=== PATIENT | male | born 1940 | race Hispanic/Latino ===

== ENCOUNTER 2018-09-24 11:25 | Day surgery (SDC) | payer OTHER ==
[~2018-09-24 11:25] MED LIST: IOPIDINE ONE; MYDRIACYL ONE; MYDRIACYL OS ONE; NEOFRIN ONE; NEOFRIN OS ONE
[2018-09-24] MEDS ORDERED: NEOFRIN OS ONE (11:40)
[2018-09-24] MEDS ORDERED: MYDRIACYL OS ONE ×2 (11:40)
[2018-09-24 12:32] VITALS: BP 94/59
== END 2018-09-24 11:26 | disposition home or self-care (01) ==
LOC: OR 11:25
PROVIDERS: ATTEND Specialist
DX: H26.491 Other secondary cataract, right eye (principal); I10 Essential (primary) hypertension; M17.0 Bilateral primary osteoarthritis of knee; Z98.890 Other specified postprocedural states; Z87.891 Personal history of nicotine dependence; Z79.84 Long term (current) use of oral hypoglycemic drugs; Z79.4 Long term (current) use of insulin; Z79.899 Other long term (current) drug therapy; Z98.41 Cataract extraction status, right eye; Z98.42 Cataract extraction status, left eye
CPT/HCPCS: 82962

== ENCOUNTER 2018-12-09 16:15 | Inpatient (IN) | payer MEDICARE, OTHER ==
[2018-12-09] MEDS ORDERED: NACL 0.9% 1000 ML 1,000 ML IV ONE (17:11)
[2018-12-09 17:41] LABS: Basophils # (Auto) 0.1 K/mm3 (0.0-0.1); Basophils % (Auto) 0.7 % (0.0-1.8); Hematocrit 44.3 % (35.5-45.6); Hemoglobin 14.5 gm/dl (11.8-15.2); Lymphocytes # (Auto) 1.8 K/mm3 (1.2-5.4); Lymphocytes % (Auto) 14.3 % (13.4-35.0); Mean Corpuscular HGB Conc 33 % (32-34); Mean Corpuscular Volume 92 fl (84-94); Monocytes # (Auto) 0.7 K/mm3 (0.0-0.8); Monocytes % (Auto) 5.8 % (0.0-7.3); Platelet Count 333 K/mm3 (140-440); Red Cell Distribution Width 13.6 % (13.2-15.2)
[2018-12-09 18:01] LABS: Alanine Aminotransferase 30 units/L (7-56); Albumin 3.3 g/dL (3.9-5); BUN/Creatinine Ratio 24; Blood Urea Nitrogen 26 mg/dL (9-20); Calcium 9.7 mg/dL (8.4-10.2); Hemolysis Index 11
--- NOTE | 2018-12-09 18:30 | Emergency Department Report ---
ED General Adult HPI - General Chief complaint: Weakness Stated complaint: DEHYDRATION/AMS Time Seen by Provider: 12/09/18 18:18 Source: patient, family Mode of arrival: Ambulatory Limitations: Altered Mental Status - History of Present Illness Initial comments: Patient is 78 years old male with history of Parkinson, diabetes and hypertension. Patient brought to the ER accompanied by his sons for evaluation of generalized weakness and diarrhea. Son stated that patient was doing well until 2 months ago when his best friend and since then his house deteriorated significantly. Patient is having difficulty walking, decreased memory, sleeping all time. Family stated that he did not have any fever, nausea or vomiting recently but he is the oral intake is significantly decreased. Patient denied any headache, chest pain or shortness of breath. - Related Data Home Medications Medication Instructions Recorded Confirmed Last Taken Atenolol 50 mg PO DAILY 09/23/18 12/09/18 Unknown Carbidopa/Levodopa [Carbidopa-Levo 1 each PO QID 09/23/18 12/09/18 Unknown 25-100 mg Odt] Insulin NPH Hum/Reg Insulin Hm 20 units SQ DAILY 09/23/18 12/09/18 Unknown [Novolin 70-30 100 Unit/ml Vial] Lisinopril [Zestril TAB] 40 mg PO DAILY 09/23/18 12/09/18 Unknown metFORMIN [Glucophage] 1,000 mg PO BID 09/23/18 12/09/18 Unknown Colesevelam [Welchol] 625 mg PO DAILY 12/09/18 12/09/18 Unknown Allergies Allergy/AdvReac Type Severity Reaction Status Date / Time No Known Allergies Allergy Verified 10/01/18 11:45 ED Review of Systems ROS: Stated complaint: DEHYDRATION/AMS Other details as noted in HPI Comment: All other systems reviewed and negative Constitutional: denies: chills, fever Respiratory: denies: cough, orthopnea, shortness of breath, SOB with exertion, SOB at rest, wheezing Cardiovascular: denies: chest pain, palpitations Gastrointestinal: abdominal pain, diarrhea. denies: nausea, vomiting, constipation, hematemesis, melena, hematochezia Genitourinary: urgency, dysuria, frequency Musculoskeletal: denies: back pain Neurological: weakness (generalized). denies: headache Psychiatric: depression. denies: auditory hallucinations, visual hallucinations, homicidal thoughts, suicidal thoughts ED Past Medical Hx - Past Medical History Hx Hypertension: Yes Hx Diabetes: Yes Hx Arthritis: Yes (Knees) Additional medical history: Parkinsons - Surgical History Past Surgical History?: No - Social History Smoking Status: Former Smoker Substance Use Type: None - Medications Home Medications: Home Medications Medication Instructions Recorded Confirmed Last Taken Type Atenolol 50 mg PO DAILY 09/23/18 12/09/18 Unknown History Carbidopa/Levodopa [Carbidopa-Levo 1 each PO QID 09/23/18 12/09/18 Unknown History 25-100 mg Odt] Insulin NPH Hum/Reg Insulin Hm 20 units SQ DAILY 09/23/18 12/09/18 Unknown History [Novolin 70-30 100 Unit/ml Vial] Lisinopril [Zestril TAB] 40 mg PO DAILY 09/23/18 12/09/18 Unknown History metFORMIN [Glucophage] 1,000 mg PO BID 09/23/18 12/09/18 Unknown History Colesevelam [Welchol] 625 mg PO DAILY 12/09/18 12/09/18 Unknown History ED Physical Exam - General Limitations: Altered Mental Status General appearance: alert, in no apparent distress - Head Head exam: Present: atraumatic, normocephalic, normal inspection - ENT ENT exam: Present: mucous membranes dry - Neck Neck exam: Present: normal inspection, full ROM. Absent: tenderness, meningismus, lymphadenopathy, thyromegaly - Respiratory Respiratory exam: Present: normal lung sounds bilaterally. Absent: respiratory distress, wheezes, rales, rhonchi, chest wall tenderness, accessory muscle use, decreased breath sounds, prolonged expiratory - Cardiovascular Cardiovascular Exam: Present: regular rate, bradycardia, normal heart sounds - GI/Abdominal GI/Abdominal exam: Present: soft, normal bowel sounds. Absent: distended, tenderness, guarding, rebound, rigid, organomegaly, mass, bruit, pulsatile mass, hernia - Extremities Exam Extremities exam: Present: normal inspection, full ROM, normal capillary refill. Absent: tenderness, pedal edema, calf tenderness - Back Exam Back exam: Present: normal inspection, full ROM. Absent: CVA tenderness (R), CVA tenderness (L), muscle spasm, paraspinal tenderness, vertebral tenderness, rash noted - Neurological Exam Neurological exam: Present: alert, oriented X3, CN II-XII intact, other (NIHSS is 0) - Psychiatric Psychiatric exam: Present: flat affect. Absent: agitated, anxious, manic, homicidal ideation, suicidal ideation - Skin Skin exam: Present: warm, dry, intact ED Course Vital Signs 12/09/18 12/09/18 12/09/18 16:24 19:26 21:00 Temperature 97.8 F 98.2 F Pulse Rate 48 L 112 H Respiratory 16 20 27 H Rate Blood Pressure 101/60 107/55 Blood Pressure 120/62 [Right] O2 Sat by Pulse 94 95 93 Oximetry ED Medical Decision Making - Lab Data Result diagrams: 12/09/18 17:18 12/09/18 17:18 - EKG Data -: EKG Interpreted by Ia EKG shows normal: sinus rhythm Rate: normal - EKG Data Interpretation: no acute changes - Radiology Data Radiology results: report reviewed Referring Physician: LOVE JORDAN Patient Name: СВЕТЛАНА POLLACK Date of : 1940 Sex: Male Report Date: 2018-12-09 Report Status: [place] [address] Cat Scan Report Signed Patient: СВЕТЛАНА POLLACK MR#: [id number] : 1940 Acct:[id number] Age/Sex: 78 / M ADM Date: 12/09/18 Loc: ED Attending Dr: Ordering Physician: LOVE JORDAN Date of Service: 12/09/18 Procedure(s): CT head/brain wo con Accession Number(s): [id number] cc: LOVE JORDAN FINAL REPORT PROCEDURE: CT head without contrast. TECHNIQUE: Computerized tomography of the head was performed without contrast material. HISTORY: Weakness. COMPARISON: No prior studies are available for comparison. FINDINGS: There is mild cerebral atrophy. There is mild evidence of chronic ischemic white matter disease. There is encephalomalacia involving the medial portion of the right occipital lobe. There is also some focal encephalomalacia involving the posterior left temporal lobe. These areas are consistent with old infarcts. There is some more subtle diminished attenuation involving a small area of the left parietal occipital region. This is not sharply defined. It involves both khan matter and subcortical white matter. It could represent a subacute stroke. Clinical cor relation is recommended. An MRI scan with diffusion-weighted imaging is the best means of further ev aluation. There are no mass lesions. There is no intracranial hemorrhage. The calvarium appears intact. The mastoid air cells are clear as far as visualized. There is extensive fluid in the left max illary sinus. IMPRESSION: Chronic ischemic changes as described. Question subacute ischemic injury in the left parieto- occipital lobe. Left maxillary sinusitis. Transcribed By: MRM Dictated By: CARLOS BENÍTEZ MD Electronically Authenticated By: CARLOS BENÍTEZ MD Signed Date/Time: 12/09/182001 Referring Physician: LOVE JORDAN Patient Name: СВЕТЛАНА POLLACK Date of : 1940 Sex: Male Report Date: 2018-12-09 Report Status: Finalized Findings [facility] [address] [place] [address] Cat Scan Report Signed Patient: СВЕТЛАНА POLLACK MR#: [id number] : 1940 Acct:[id number] Age/Sex: 78 / M ADM Date: 12/09/18 Loc: ED Attending Dr: Ordering Physician: LOVE JORDAN Date of Service: 12/09/18 Procedure(s): CT abdomen pelvis w con Accession Number(s): [id number] cc: LOVE JORDAN FINAL REPORT PROCEDURE: CT abdomen and pelvis with contrast. TECHNIQUE: Computerized axial tomography of the abdomen and pelvis was performed after the IV injection of iodinated nonionic contrast. HISTORY: Abdominal pain, diarrhea. COMPARISON: No prior studies are available for comparison. FINDINGS: There are numerous nodular masses in both lung bases. The largest visualized measures 4.8 centimeters in maximum dimension. The findings are consistent with metastatic disease. There are no pleural effusions. The heart size is normal. There are numerous areas of low attenuation throughout the liver. These are also consistent with widespread metastases. The gallbladder is present. There is no biliary dilatation. The pancreas and spleen appear normal. The adrenal glands are not enlarged. There are bilateral renal cysts. The abdominal aorta has a normal caliber. There is dense atherosclerotic calcification in the abdominal aorta and iliac arteries. There is no retroperitoneal adenopathy. The unopacified gastrointestinal tract is unremarkable. A normal appendix is visible. The bladder, seminal vesicles and prostate appear normal. The regional skeleton appears intact. There is degenerative disc disease at L2-3, L3-4 and L4-5. There is grade 1 spondylolisthesis at L4- 5. IMPRESSION: Extensive metastatic disease in the lungs and liver. Atherosclerosis. Bilateral renal cysts. Transcribed By: MRM Dictated By: CARLOS BENÍTEZ MD Electronically Authenticated By: CARLOS BENÍTEZ MD Signed Date/Time: 12/09/182041 DD/ 43 TD/TT: 12/09/182043 DD/ 04 TD/TT: 12/09/182004 - Medical Decision Making Patient is 78 years old male with history of Parkinson, diabetes and hypertension. Patient brought to the ER accompanied by his sons for evaluation of generalized weakness and diarrhea. Son stated that patient was doing well until 2 months ago when his best friend and since then his health deteriorated significantly. Patient is having difficulty walking, decreased memory, sleeping all time. Family stated that he did not have any fever, nausea or vomiting recently but his the oral intake is significantly decreased. Patient denied any headache, chest pain or shortness of breath. Patient EKG is unremarkable. CT brain showed a left parietal subacute ischemia. Patient chest x-ray and CT abdomen and pelvis showed extensive metastases dis ease in the lungs and liver. Patient receive IV fluids and Zosyn. I discussed the patient with Dr. Ros sanchez, she agreed to admit the patient to medical service for further evaluation. Critical Care Time: Yes Critical care time in (mins) excluding proc time.: 30 Critical care attestation.: If time is entered above; I have spent that time in minutes in the direct care of this critically ill patient, excluding procedure time. ED Disposition Clinical Impression: Weakness, Stroke, Metastases to the liver, Lung metastases Disposition: OP ADMIT IP TO THIS HOSP Is pt being admited?: Yes Condition: Stable Referrals: PRIMARY CARE, [Primary Care Provider] - 3-5 Days
[2018-12-09] MEDS ORDERED: ZOSYN/NS 3.375GM/50ML 3.375 GM/50 ML BAG IV ONE (19:00)
--- NOTE | 2018-12-09 20:02 | Cat Scan Report ---
FINAL REPORT PROCEDURE: CT head without contrast. TECHNIQUE: Computerized tomography of the head was performed without contrast material. HISTORY: Weakness. COMPARISON: No prior studies are available for comparison. FINDINGS: There is mild cerebral atrophy. There is mild evidence of chronic ischemic white matter disease. Ther e is encephalomalacia involving the medial portion of the right occipital lobe. There is also some fo mar encephalomalacia involving the posterior left temporal lobe. These areas are consistent with old infarcts. There is some more subtle diminished attenuation involving a small area of the left parieta l occipital region. This is not sharply defined. It involves both khan matter and subcortical white m atter. It could represent a subacute stroke. Clinical correlation is recommended. An MRI scan with di ffusion-weighted imaging is the best means of further evaluation. There are no mass lesions. There is no intracranial hemorrhage. The calvarium appears intact. The mastoid air cells are clear as far as visualized. There is extensive fluid in the left maxillary sinus. IMPRESSION: Chronic ischemic changes as described. Question subacute ischemic injury in the left parieto-occipita l lobe. Left maxillary sinusitis.
--- NOTE | 2018-12-09 20:11 | XRay Report ---
FINAL REPORT EXAM: XR CHEST 1V AP HISTORY: weakness TECHNIQUE: Chest single AP PRIORS: None. FINDINGS: Numerous pulmonary nodules are scattered throughout both lungs measuring up to 5.8 centimeters in tra nsverse diameter consistent appearance with advanced metastatic disease. Cardiac silhouette appears within normal limits. No pleural effusions are identified. No acute skelet al findings noted. IMPRESSION: Numerous pulmonary nodules throughout the chest most consistent with advanced metastatic disease CTR 2 protocol initiated at the time of this dictation
--- NOTE | 2018-12-09 20:42 | Cat Scan Report ---
FINAL REPORT PROCEDURE: CT abdomen and pelvis with contrast. TECHNIQUE: Computerized axial tomography of the abdomen and pelvis was performed after the IV inject ion of iodinated nonionic contrast. HISTORY: Abdominal pain, diarrhea. COMPARISON: No prior studies are available for comparison. FINDINGS: There are numerous nodular masses in both lung bases. The largest visualized measures 4.8 centimeters in maximum dimension. The findings are consistent with metastatic disease. There are no pleural effu sions. The heart size is normal. There are numerous areas of low attenuation throughout the liver. Th dheeraj are also consistent with widespread metastases. The gallbladder is present. There is no biliary d ilatation. The pancreas and spleen appear normal. The adrenal glands are not enlarged. There are bila teral renal cysts. The abdominal aorta has a normal caliber. There is dense atherosclerotic calcifica tion in the abdominal aorta and iliac arteries. There is no retroperitoneal adenopathy. The unopacifi ed gastrointestinal tract is unremarkable. A normal appendix is visible. The bladder, seminal vesicle s and prostate appear normal. The regional skeleton appears intact. There is degenerative disc diseas e at L2-3, L3-4 and L4-5. There is grade 1 spondylolisthesis at L4-5. IMPRESSION: Extensive metastatic disease in the lungs and liver. Atherosclerosis. Bilateral renal cysts.
[2018-12-09] MEDS ORDERED: SODIUM CHLORIDE FLUSH SYRINGE 10 ML IV PRN (22:18)
[2018-12-09] MEDS ORDERED: ZOFRAN IV PRN ×2 (22:18→22:23)
[2018-12-09] MEDS ORDERED: PERCOCET 5/325 PO PRN (22:18)
[2018-12-09] MEDS ORDERED: TYLENOL PO PRN (22:23)
[2018-12-09] MEDS ORDERED: SODIUM CHLORIDE FLUSH SYRINGE 10 ML INJ PRN (22:23)
[2018-12-09] MEDS ORDERED: MILK OF MAGNESIA PO PRN (22:23)
[2018-12-09] MEDS ORDERED: DULCOLAX PR PRN (22:23)
[2018-12-09] MEDS ORDERED: REGLAN PO PRN (22:23)
--- NOTE | 2018-12-09 22:29 | History and Physical Report ---
History of Present Illness Date of examination: 12/09/18 History of present illness: 78 -year-old man a history of hypertension, diabetes, Parkinson's was brought to the emergency room by the son for evaluation of weight loss. He stated the patient is diarrhea for maybe 3 weeks, the patient has become forgetful and has difficulty ambulating, generalized weakness Review of systems Constitutional: no weight loss, chills, fever Ears, eyes, nose, mouth and throat: no nasal congestion, no nasal discharge, no sinus pressure, no vision change, no red eye. Neck: No neck pain or rigidity. Cardiovascular: no palpitations, chest pain Respiratory: no cough, shortness of breath Gastrointestinal: no hematochezia, abdominal pain Genitourinary : no frequency , no hematuria Musculoskeletal: no joint swelling or muscle ache Integumentary: no rash, no pruritis Neurological: no parathesias, no focal weakness Endocrine: no cold or heat intolerance, no polyuria or polydipsia Hematologic/Lymphatic: no easy bruising, no easy bleeding, no gland swelling Allergic/Immunologic: no urticaria, no angioedema. PAST MEDICAL HISTORY: hypertension, diabetes, Parkinson's PAST SURGICAL HISTORY: Cataract extraction SOCIAL HISTORY: Denies alcohol, drugs, tobacco FAMILY HISTORY: Hypertension Medications and Allergies Allergies Allergy/AdvReac Type Severity Reaction Status Date / Time No Known Allergies Allergy Verified 10/01/18 11:45 Home Medications Medication Instructions Recorded Confirmed Last Taken Type Atenolol 50 mg PO DAILY 09/23/18 12/09/18 Unknown History Carbidopa/Levodopa [Carbidopa-Levo 1 each PO QID 09/23/18 12/09/18 Unknown History 25-100 mg Odt] Insulin NPH Hum/Reg Insulin Hm 20 units SQ DAILY 09/23/18 12/09/18 Unknown Histo ry [Novolin 70-30 100 Unit/ml Vial] Lisinopril [Zestril TAB] 40 mg PO DAILY 09/23/18 12/09/18 Unknown History metFORMIN [Glucophage] 1,000 mg PO BID 09/23/18 12/09/18 Unknown History Colesevelam [Welchol] 625 mg PO DAILY 12/09/18 12/09/18 Unknown History Active Meds: Active Medications Acetaminophen (Tylenol) 650 mg PO Q4H PRN PRN Reason: Pain MILD(1-3)/Fever >100.5/ROBLEDO Acetaminophen (Tylenol) 650 mg PO Q4H PRN PRN Reason: Pain, Mild (1-3) Aspirin (Aspirin) 325 mg PO QDAY MARU Bisacodyl (Dulcolax) 10 mg OR QDAY PRN PRN Reason: Constipation Enoxaparin Sodium (Lovenox) 30 mg SUB-Q QDAY [facility] Sodium Chloride (Nacl 0.9% 1000 Ml) 1,000 mls @ 100 mls/hr IV DIRECT MARU Magnesium Hydroxide (Milk Of Magnesia) 30 ml PO Q4H PRN PRN Reason: Constipation Metoclopramide HCl (Reglan) 10 mg PO Q6H PRN PRN Reason: Nausea And Vomiting Ondansetron HCl (Zofran) 4 mg IV Q8H PRN PRN Reason: Nausea And Vomiting Ondansetron HCl (Zofran) 4 mg IV Q8H PRN PRN Reason: Nausea And Vomiting Oxycodone/Acetaminophen (Percocet 5/325) 1 tab PO Q6H PRN PRN Reason: Pain, Moderate (4-6) Pravastatin Sodium (Pravachol) 20 mg PO QHS MARU Sodium Chloride (Sodium Chloride Flush Syringe 10 Ml) 10 ml IV BID MARU Sodium Chloride (Sodium Chloride Flush Syringe 10 Ml) 10 ml IV PRN PRN PRN Reason: LINE FLUSH Sodium Chloride (Sodium Chloride Flush Syringe 10 Ml) 10 ml INJ PRN PRN PRN Reason: LINE FLUSH Exam - Physical Exam Narrative exam: General Apperance: The patient lying in bed, breathing comfortable HEENT: Normocephalic, atraumatic. Pupils equally round and reactive to light, EOMI, no sclericterus or JVD or thyromegaly or nodule. , no carotid bruit, mucous membranes moist, no exudate or erythema Heart: S1-S2, regular is rhythm Lungs: Clear to auscultation bilaterally, breathing comfortable Abdomen: Positive bowel sounds, soft, nontender, nondistended, no organomegaly Extremities: No edema cyanosis clubbing Skin: no rash, nodule, warm and dry Neuro: cranial nerves 2-12 intact, speech is fluent, motor/sensory intact - Constitutional Vitals: Temp Pulse Resp BP Pulse Ox 98.2 F 112 H 27 H 107/55 93 12/09/18 19:26 12/09/18 21:00 12/09/18 21:00 12/09/18 21:00 12/09/18 21:00 Results - Labs CBC & Chem 7: 12/09/18 17:18 12/09/18 17:18 Labs: Abnormal lab results 12/09/18 12/09/18 Range/Units 17:18 17:18 WBC 12.3 H (4.5-11.0) K/mm3 Seg Neutrophils % 79.2 H (40.0-70.0) % Seg Neutrophils # 9.7 H (1.8-7.7) K/mm3 Sodium 135 L (137-145) mmol/L Chloride 95.4 L (98-107) mmol/L Carbon Dioxide 17 L (22-30) mmol/L BUN 26 H (9-20) mg/dL Glucose 205 H (75-100) mg/dL Alkaline Phosphatase 210 H (35-129) units/L Albumin 3.3 L (3.9-5) g/dL - Imaging and Cardiology Chest x-ray: report reviewed CT scan - abdomen: report reviewed CT Scan - head: report reviewed CT scan - pelvis: report reviewed Assessment and Plan Assessment Metastatic cancer of unknown origin Subacute CVA Diarrhea, rule out C. difficile Dehydration Hypertension Diabetes Plan Admit to medicine Obtain MRI of the head, carotid Doppler, echo Do neuro checks, consult neurology, physical and occupational therapy Start aspirin, statin, IV fluid Start IV fluids, check stool for culture, C. difficile Consult oncology Check fingersticks , DVT prophylaxis
[2018-12-10 00:16] LABS: Bilirubin,Urine NEG (Negative); Blood,Urine NEG (Negative); Color,Urine Yellow (Yellow); Hyaline Casts,Urine 4 /LPF; Mucus,Urine FEW /HPF; Protein,Urine <15 mg/dL mg/dL (Negative); Urobilinogen,Urine < 2.0 mg/dL (<2.0)
[2018-12-10] MEDS: NACL 0.9% 1000 ML 1,000 ML IV SCH (01:14)
[2018-12-10 05:38] LABS: Basophils # (Auto) 0.1 K/mm3 (0.0-0.1); Basophils % (Auto) 0.7 % (0.0-1.8); Eosinophils % (Auto) 0.2 % (0.0-4.3); Hematocrit 41.5 % (35.5-45.6); Hemoglobin 13.9 gm/dl (11.8-15.2); Lymphocytes % (Auto) 17.6 % (13.4-35.0); Mean Corpuscular HGB Conc 34 % (32-34); Mean Corpuscular Volume 91 fl (84-94); Monocytes # (Auto) 0.8 K/mm3 (0.0-0.8); Monocytes % (Auto) 7.1 % (0.0-7.3); Platelet Count 301 K/mm3 (140-440); Red Blood Count 4.54 M/mm3 (3.65-5.03); Red Cell Distribution Width 13.5 % (13.2-15.2)
[2018-12-10 05:43] LABS: BUN/Creatinine Ratio 22; Blood Urea Nitrogen 24 mg/dL (9-20); Calcium 9.3 mg/dL (8.4-10.2); Chol/HDL Ratio 9.34 %; HDL Cholesterol 23 mg/dL (40-59); Hemolysis Index 1; LDL Cholesterol,Direct 171 mg/dL (50-130)
[2018-12-10] MEDS ORDERED: LOVENOX SUB-Q SCH (10:00)
[2018-12-10] MEDS ORDERED: AFLURIA QUAD 2018-2019 SYRINGE IM ONE (12:00)
[2018-12-10] MEDS ORDERED: PNEUMOVAX 23 IM ONE (12:00)
--- NOTE | 2018-12-10 13:43 | Magnetic Resonance Report ---
MRI OF THE BRAIN WITHOUT CONTRAST: HISTORY: Stroke PROCEDURE: Multiplanar, multisequence MR imaging of the brain without IV contrast was performed. FINDINGS: CT head dated 12/09/18 was reviewed. Diffusion images confirm a 4.2 x 2.7 cm area of diffusion restriction in the left parietal-occipital watershed region. This is consistent with a subacute infarct. No additional areas of diffusion restriction are identified. Diffuse cortical volume loss and nonspecific chronic white matter changes are identified. Chronic cortical infarct in the medial right occipital lobe measures 3.9 x 2.6 cm. Chronic cortical infarct in the posterior left temporal lobe measures 2.8 x 2.1 cm. A smaller chronic cortical infarct is identified in the left parietal lobe. No evidence for hemorrhage, mass, mass effect or extra-axial fluid collection. The midline structures are central. The basal cisterns are patent. Normal ventricular size. The orbital cavities and sella turcica demonstrate no abnormality. The left maxillary sinus is nearly opacified and demonstrates diffusion restriction consistent with acute sinusitis. The remaining sinuses are well-aerated. IMPRESSION: 4.2 x 2.7 cm subacute ischemic infarct in the left parieto-occipital region. 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 Volume loss. Chronic white matter changes. Acute on chronic left maxillary sinusitis.
--- NOTE | 2018-12-10 13:49 | Vascular Lab Report ---
FINAL REPORT EXAM: VL CAROTID DUPLEX BILAT HISTORY: stroke TECHNIQUE: Grayscale and color and spectral Doppler ultrasound imaging of the carotid arteries was p erformed. PRIORS: None. FINDINGS: No areas of complete occlusion. Normal waveforms are seen throughout. No aneurysm. Normal flow is see n in the external carotid arteries. Antegrade flow is seen in the vertebral arteries. Calcified ather osclerotic plaque is seen. Peak systolic velocities in cm/s below: Right: CCA: 77 proximally, 73 distally ICA: 53 proximally, 41 mid, 44 distally ECA: 108 Left: CCA: 86 proximally, 84 distally ICA: 86 proximally, 83 mid, 59 distally ECA: 118 The right ICA:CCA ratio is 0.69. The left ICA:CCA ratio is 1.01. IMPRESSION: Calcified atherosclerotic plaque with less than 50 percent stenosis of the internal carotid arteries.
--- NOTE | 2018-12-10 14:14 | Progress Note ---
Assessment and Plan - Patient Problems (1) Lung metastases Current Visit: Yes Status: Acute Qualifiers: Laterality: unspecified laterality Qualified Code(s): C78.00 - Secondary malignant neoplasm of unspecified lung Plan to address problem: Hem onc consult requested (2) Metastases to the liver Current Visit: Yes Status: Acute Plan to address problem: For possible biopsy by IR (3) Stroke Current Visit: Yes Status: Chronic Qualifiers: CVA mechanism: thrombosis Plan to address problem: Stroke in the past Supportive care (4) Diarrhea Current Visit: Yes Status: Chronic Qualifiers: Diarrhea type: unspecified type Qualified Code(s): R19.7 - Diarrhea, unspecified Plan to address problem: Possible malabsorption stool studies ordered C diff ordered GI consult (5) HTN (hypertension) Current Visit: Yes Status: Chronic Qualifiers: Hypertension type: essential hypertension Qualified Code(s): I10 - Essential (primary) hypertension Plan to address problem: Cont antihypertensives (6) T2DM (type 2 diabetes mellitus) Current Visit: Yes Status: Chronic Qualifiers: Diabetes mellitus fpc insulin use: without horseshoer use Plan to address problem: Cont coverage (7) Dehydration Current Visit: Yes Status: Acute Plan to address problem: IV Fluids for now (8) DVT prophylaxis Current Visit: Yes Status: Acute Plan to address problem: On Lovenox and GI prophylaxis Subjective Date of service: 12/10/18 Principal diagnosis: Lung mets and Liver mets ,Diarrhea Interval history: [id number] with diarrhea,feeling weak.same condition Objective - Constitutional Vitals: Vital Signs - 12hr 12/10/18 12/10/18 12/10/18 04:02 05:00 07:51 Temperature 97.3 F L 98.2 F Pulse Rate 90 93 H 95 H Respiratory 14 18 Rate Blood Pressure 105/63 103/54 O2 Sat by Pulse 94 94 Oximetry 12/10/18 12:11 Temperature Pulse Rate 109 H Respiratory Rate Blood Pressure 100/63 O2 Sat by Pulse 94 Oximetry General appearance: Present: no acute distress, well-nourished - EENT Eyes: PERRL, EOM intact ENT: hearing intact, clear oral mucosa Ears: bilateral: normal - Neck Neck: supple, normal ROM - Respiratory Respiratory effort: normal Respiratory: bilateral: CTA - Breasts Breasts: normal - Cardiovascular Heart rate: 78 Rhythm: regular Heart Sounds: Present: S1 & S2. Absent: gallop, rub Extremities: pulses intact, No edema, normal color, Full ROM - Gastrointestinal General gastrointestinal: Present: soft, non-tender, non-distended, normal bowel sounds - Genitourinary Male genitourinary: normal - Integumentary Integumentary: clear, warm, dry - Musculoskeletal Musculoskeletal: 1, strength equal bilaterally - Neurologic Neurologic: moves all extremities - Psychiatric Psychiatric: memory intact, appropriate mood/affect, intact judgment & insight - Labs CBC & Chem 7: 12/10/18 04:46 12/10/18 04:46 Labs: Abnormal lab results 12/09/18 12/09/18 12/10/18 Range/Units 17:18 17:18 00:05 WBC 12.3 H (4.5-11.0) K/mm3 Seg Neutrophils % 79.2 H (40.0-70.0) % Seg Neutrophils # 9.7 H (1.8-7.7) K/mm3 Sodium 135 L (137-145) mmol/L Chloride 95.4 L (98-107) mmol/L Carbon Dioxide 17 L (22-30) mmol/L BUN 26 H (9-20) mg/dL Glucose 205 H (75-100) mg/dL Alkaline Phosphatase 210 H (35-129) units/L Albumin 3.3 L (3.9-5) g/dL Cholesterol (50-199) mg/dL LDL Cholesterol Direct (50-130) mg/dL HDL Cholesterol (40-59) mg/dL Ur Specific Mather 1.060 H (1.003-1.030) 12/10/18 12/10/18 Range/Units 04:46 04:46 WBC 11.6 H (4.5-11.0) K/mm3 Seg Neutrophils % 74.4 H (40.0-70.0) % Seg Neutrophils # 8.6 H (1.8-7.7) K/mm3 Sodium (137-145) mmol/L Chloride (98-107) mmol/L Carbon Dioxide 21 L (22-30) mmol/L BUN 24 H (9-20) mg/dL Glucose 155 H (75-100) mg/dL Alkaline Phosphatase (35-129) units/L Albumin (3.9-5) g/dL Cholesterol 215 H (50-199) mg/dL LDL Cholesterol Direct 171 H (50-130) mg/dL HDL Cholesterol 23 L (40-59) mg/dL Ur Specific Mather (1.003-1.030) CT Abd/pelvis FINDINGS: There are numerous nodular masses in both lung bases. The largest visualized measures 4.8 centimeters in maximum dimension. The findings are consistent with metastatic disease. There are no pleural effusions. The heart size is normal. There are numerous areas of low attenuation throughout the liver. These are also consistent with widespread metastases. The gallbladder is present. There is no biliary dilatation. The pancreas and spleen appear normal. The adrenal glands are not enlarged. There are bilateral renal cysts. The abdominal aorta has a normal caliber. There is dense atherosclerotic calcification in the abdominal aorta and iliac arteries. There is no retroperitoneal adenopathy. The unopacified gastrointestinal tract is unremarkable. A normal appendix is visible. The bladder, seminal vesicles and prostate appear normal. The regional skeleton appears intact. There is degenerative disc disease at L2-3, L3-4 and L4-5. There is grade 1 spondylolisthesis at L4- 5. IMPRESSION: Extensive metastatic disease in the lungs and liver. Atherosclerosis. Bilateral renal cysts. - Imaging and cardiology Chest x-ray: report reviewed CT scan - chest: report reviewed CT Scan - head: report reviewed
--- NOTE | 2018-12-10 16:08 | Event Note ---
Date: 12/10/[id number]
[2018-12-10] MEDS: ASPIRIN PO SCH (16:31)
[2018-12-10] MEDS: LOVENOX SUB-Q SCH (16:32)
[2018-12-10] MEDS: SODIUM CHLORIDE FLUSH SYRINGE 10 ML IV SCH (16:32)
[2018-12-10] MEDS: HumaLOG SUB-Q SCH ×2 (19:13→23:59)
[2018-12-10] MEDS: PRAVACHOL PO SCH (21:08)
--- NOTE | 2018-12-11 00:19 | Consultation ---
REFERRING PHYSICIAN: Dean Leonardo MD REASON FOR CONSULTATION: Lung and liver lesions. HISTORY OF PRESENT ILLNESS: I saw the patient, a 78-year-old male with past history of hypertension, diabetes, Parkinson's. He came to the hospital because of weight loss and diarrhea for a few weeks. The patient also has a history of being forgetful and generalized weakness. The patient lives alone, but because of his medical issues, there is a question if he should be in the detention. He has lost about 20 pounds in a few months. No history of fever. The patient has memory issues. No chest pain. No shortness of breath at rest. No abdominal pain, no vomiting, has diarrhea. No hematemesis, no hematochezia. No seizure or syncope. PAST MEDICAL HISTORY: Hypertension, diabetes, Parkinson's. PAST SURGICAL HISTORY: Cataracts. SOCIAL HISTORY: No history of tobacco or alcohol use. FAMILY HISTORY: Hypertension. ALLERGIES: None. HOME MEDICATIONS: Atenolol, carbidopa-levodopa, insulin, lisinopril, metformin. PHYSICAL EXAMINATION: VITAL SIGNS: Temperature 98, pulse 95, respirations 18, BP 103/54. No pallor, no icterus. NECK: No neck lymph nodes. HEART: S1, S2. LUNGS: Clear to auscultation. Decreased air entry. ABDOMEN: Soft, no guarding. EXTREMITIES: No calf tenderness. NEUROLOGIC: Alert, awake, follows simple commands. LABORATORY DATA: White cell 11, hemoglobin 13, MCV 91, platelets 301, potassium 4.2, creatinine 1.1, calcium 9.3, bilirubin 0.8. RADIOLOGY: CT abdomen shows multiple lung and liver lesions, largest in the lung is 4.8 cm. In the liver, there are numerous areas of low attenuation throughout. MRI brain was done and it shows ischemic infarct. ASSESSMENT: 1. Multiple lung lesions, likely metastatic. 2. Multiple liver densities, possible metastatic. 3. History of renal cyst. 4. History of loss of weight. 5. I discussed with the patient and family members regarding biopsy to know the tissue. They are not sure regarding the further plan. They are not keen to have chemotherapy due to his performance status issues. The patient has memory issues. MRI of the head shows stroke. 6. History of diarrhea, GI evaluation. 7. Further issues include Parkinson's issue. 8. History of hypertension. 9. History of diabetes. PLAN: 1. We will do tumor markers. 2. This appears to be a metastatic neoplasm. Liver biopsy is an option. I will liaise with other physicians to guide the patient and family members regarding further investigations. Blood liquid biopsy is an option. I will review this with family members. JOB# [id number] NM/NTS
--- NOTE | 2018-12-11 01:31 | Consultation ---
NEUROLOGICAL CONSULTATION REASON FOR CONSULTATION: Parkinson disease, lethargy, weakness, weight loss. History of present illness and other information was obtained from the two brothers and the [id number], who was at the bedside. HISTORY OF PRESENT ILLNESS: The patient is a 78-year-old with a chronic illness, has been very, very sick and he was brought to the Emergency Room because of weight loss and was having diarrhea for the last 3 weeks. On top of this, he was also having decline in his mentation. His memory has been getting bad. He is not walking like before. He is just very weak and not eating much. Most of the time, he was just asleep. He was then brought in here to make him mainly comfortable. The patient is not having any pain, but just very weak. There was a history that his best friend recently and then he deteriorated significantly. PAST MEDICAL HISTORY: The patient was diagnosed with Parkinson disease, diabetes, hypertension. He has cancer also and was found to have metastases in the lungs, the liver, and the abdomen. The source of metastasis apparently is not known. Past medical history as mentioned hypertension, diabetes, arthritis, Parkinson, cancer. PAST SURGICAL HISTORY: None, but apparently the family was requesting a liver biopsy to see the extent of the disease, but not for treatment. SOCIAL HISTORY: The patient is a former smoker, but not a drug abuser. MEDICATIONS: The patient is taking atenolol, carbidopa/levodopa 25/100 q.i.d., insulin, lisinopril, metformin. PHYSICAL EXAMINATION: GENERAL: Reveals a patient who is chronically ill, very weak, but awake and communicating. VITAL SIGNS: Temperature 97.8, heart rate 50, respirations 16 and regular, blood pressure 101/60, saturation 94%. HEAD, EYES, EARS, NOSE, MOUTH, AND THROAT: Unremarkable. No intracranial or intraorbital bruit. NECK: Supple. No carotid bruit. HEART: Regular rhythm. LUNGS: Decreased breath sounds. ABDOMEN: Soft, nontender. EXTREMITIES: Dry. No edema. NEUROLOGIC: Reveals the patient is awake, alert, communicating, following verbal commands, however he is confused to time. He thought he was in [place], [place]. Memory is very poor. No fund of knowledge. Cranial nerve examination limited, but unremarkable. There is suggestion of right-sided facial weakness. Tongue ____. Motor examination: The patient is very weak, however he has no cogwheeling rigidity, no tremor. The patient is not ambulated because of his weakness. Reflexes hypoactive. Neutral toe response. CLINICAL IMPRESSION: I was asked to see this patient for the Parkinson disease. ASSESSMENT: 1. This patient indeed does have chronic Parkinson disease. His recovery is not expected. 2. The patient has evidence of subacute cerebrovascular accident. This was seen in the MRI. The patient also has encephalopathy which could be remote effects of maybe cancer or stroke. The patient has evidence of metastatic disease in the abdomen and in the lungs. PLAN: I had a long discussion with his family. They just wanted the patient to be comfortable. I discussed with them that the patient is just fine with the current dose of carbidopa/levodopa. The patient should take other medicines to make him feel comfortable. They are aware that the prognosis of their father is very poor. Sixty minutes involved in the history and physical examination and more than 50% in the evaluation and care and counseling. JOB# [id number] BAUTISTA/SHANTANU
--- NOTE | 2018-12-11 07:17 | Hem/Onc Progress Note ---
Assessment and Plan 1. Multiple lung lesions, likely metastatic. 2. Multiple liver densities, possible metastatic. 3. History of renal cyst. 4. History of loss of weight. 5. I discussed with the patient and family members regarding biopsy to know the tissue. They are not sure regarding the further plan. They are not keen to have chemotherapy due to his performance status issues. The patient has memory issues. MRI of the head shows stroke. 6. History of diarrhea, GI evaluation. 7. Further issues include Parkinson's issue. 8. History of hypertension. 9. History of diabetes. PLAN: 1. We will do tumor markers. 2. This appears to be a metastatic neoplasm. Liver biopsy is an option. I will liaise with other physicians to guide the patient and family members regarding further investigations. Blood liquid biopsy is an option. I will review this with family members. 12/11/2018 d/w misha - they prefer liver bx - but no chemo or no PORT tumor markers sent - PSA normal Subjective Date of service: 12/11/18 Principal diagnosis: lung and liver mets Interval history: says ok Objective - Constitutional Vitals: Last Vital Signs Temp 98.4 F 12/11/18 04:30 Pulse 97 H 12/11/18 04:30 Resp 17 12/11/18 04:30 BP 129/71 12/11/18 04:30 Pulse Ox 94 12/11/18 04:30 Pain Intensity (0-10): denies any pain General appearance: no acute distress Performance status: 3-limited selfcare - EENT Eyes: EOM intact ENT: clear oral mucosa Lymph node exam: negative cervical, negative supraclavicular - Neck Neck: supple - Respiratory Respiratory effort: Positive: normal Respiratory: negative: CTA, diminished - Cardiovascular Heart Sounds: Present: S1 & S2 Extremities: No edema - Gastrointestinal General gastrointestinal: Present: soft, hepatomegaly Rectal Exam: deferred - Genitourinary Male genitourinary: Present: deferred - Integumentary Integumentary: warm - Musculoskeletal Musculoskeletal: strength equal bilaterally - Neurologic Neurologic: moves all extremities - Labs Lab Results: Laboratory Results - last 24 hr 12/10/18 12/10/18 12/10/18 16:25 17:03 20:45 POC Glucose 247 H 227 H Prostate Specific Ag 1.51 12/10/18 12/11/18 23:58 06:00 POC Glucose 204 H 144 H Prostate Specific Ag Medications & Allergies - Medications Allergies/Adverse Reactions: Allergies No Known Allergies Allergy (Verified 10/01/18 11:45) Home Medications: Home Medications Medication Instructions Recorded Confirmed Last Taken Type Atenolol 50 mg PO DAILY 09/23/18 12/09/18 Unknown History Carbidopa/Levodopa [Carbidopa-Levo 1 each PO QID 09/23/18 12/09/18 Unknown History 25-100 mg Odt] Insulin NPH Hum/Reg Insulin Hm 20 units SQ DAILY 09/23/18 12/09/18 Unknown History [Novolin 70-30 100 Unit/ml Vial] Lisinopril [Zestril TAB] 40 mg PO DAILY 09/23/18 12/09/18 Unknown History metFORMIN [Glucophage] 1,000 mg PO BID 09/23/18 12/09/18 Unknown History Colesevelam [Welchol] 625 mg PO DAILY 12/09/18 12/09/18 Unknown History rOPINIRole [Requip] 1 mg PO BID 12/10/18 12/10/18 1 Day Ago History ~12/09/18 2mg Active Medications: Generic Name Dose Route Start Last Admin Trade Name Freq PRN Reason Stop Dose Admin Acetaminophen 650 mg 12/09/18 22:18 Tylenol PO Q4H PRN Pain MILD(1-3)/Fever >100.5/ROBLEDO Aspirin 325 mg 12/10/18 10:00 12/10/18 16:31 Aspirin PO 325 mg QDAY MARU Administration Bisacodyl 10 mg 12/09/18 22:23 Dulcolax DE QDAY PRN Constipation Enoxaparin Sodium 40 mg 12/10/18 10:00 12/10/18 16:32 Lovenox SUB-Q 40 mg QDAY@1000 MARU Administration Sodium Chloride 1,000 mls @ 100 mls/hr 12/09/18 23:00 12/10/18 01:14 Nacl 0.9% 1000 Ml IV 100 mls/hr DIRECT MARU Administration Insulin Human Lispro 0 unit 12/10/18 16:30 12/10/18 23:59 Humalog SUB-Q 3 unit ACHS MARU Administration Protocol Magnesium Hydroxide 30 ml 12/09/18 22:23 Milk Of Magnesia PO Q4H PRN Constipation Metoclopramide HCl 10 mg 12/09/18 22:23 Reglan PO Q6H PRN Nausea And Vomiting Ondansetron HCl 4 mg 12/09/18 22:18 Zofran IV Q8H PRN Nausea And Vomiting Oxycodone/Acetaminophen 1 tab 12/09/18 22:18 Percocet 5/325 PO Q6H PRN Pain, Moderate (4-6) Pneumococcal Polyvalent Vaccine 0.5 ml 12/11/18 12:00 Pneumovax 23 IM 12/11/18 12:01 .ONCE ONE Pravastatin Sodium 20 mg 12/10/18 22:00 12/10/18 21:08 Pravachol PO 20 mg QHS MARU Administration Sodium Chloride 10 ml 12/10/18 10:00 12/11/18 00:00 Sodium Chloride Flush Syringe 10 Ml IV 10 ml BID MARU Administration Sodium Chloride 10 ml 12/09/18 22:18 Sodium Chloride Flush Syringe 10 Ml IV PRN PRN LINE FLUSH
[2018-12-11] MEDS: HumaLOG SUB-Q SCH ×4 (08:00→22:23)
--- NOTE | 2018-12-11 09:01 | Event Note ---
Date: 12/11/[address] scans and request for liver biopsy. Numerous liver lesions and lung lesions. Agree with plan for liver biopsy. Patient ate this morning. Plan for NPO after MN on friday/friday for CT guided liver biopsy on friday.
--- NOTE | 2018-12-11 09:16 | Progress Note ---
Assessment and Plan - Patient Problems (1) Lung metastases Current Visit: Yes Status: Acute Qualifiers: Laterality: unspecified laterality Qualified Code(s): C78.00 - Secondary malignant neoplasm of unspecified lung Plan to address problem: Hem onc consult requested (2) Metastases to the liver Current Visit: Yes Status: Acute Plan to address problem: For possible biopsy by IR (3) Stroke Current Visit: Yes Status: Chronic Qualifiers: CVA mechanism: thrombosis Plan to address problem: Stroke in the past Supportive care (4) Diarrhea Current Visit: Yes Status: Chronic Qualifiers: Diarrhea type: unspecified type Qualified Code(s): R19.7 - Diarrhea, unspecified Plan to address problem: Possible malabsorption stool studies ordered C diff ordered GI consult (5) HTN (hypertension) Current Visit: Yes Status: Chronic Qualifiers: Hypertension type: essential hypertension Qualified Code(s): I10 - Essential (primary) hypertension Plan to address problem: Cont antihypertensives (6) T2DM (type 2 diabetes mellitus) Current Visit: Yes Status: Chronic Qualifiers: Diabetes mellitus superintendent container terminal insulin use: without superintendent container terminal use Plan to address problem: Cont coverage (7) Dehydration Current Visit: Yes Status: Acute Plan to address problem: IV Fluids for now (8) DVT prophylaxis Current Visit: Yes Status: Acute Plan to address problem: On Lovenox and GI prophylaxis Subjective Date of service: 12/11/18 Principal diagnosis: Lung mets and Liver mets ,Diarrhea Interval history: [id number] with diarrhea,feeling weak.same condition Objective - Constitutional Vitals: Vital Signs - 12hr 12/10/18 12/11/18 12/11/18 23:47 02:00 04:30 Temperature 97.5 F L 98.4 F Pulse Rate 100 H 108 H 97 H Respiratory 12 17 Rate Blood Pressure 124/71 129/71 O2 Sat by Pulse 94 94 Oximetry 12/11/18 08:48 Temperature 98.0 F Pulse Rate 100 H Respiratory 20 Rate Blood Pressure 112/66 O2 Sat by Pulse 95 Oximetry General appearance: Present: no acute distress, well-nourished - EENT Eyes: PERRL, EOM intact ENT: hearing intact, clear oral mucosa Ears: bilateral: normal - Neck Neck: supple, normal ROM - Respiratory Respiratory effort: normal Respiratory: bilateral: CTA - Breasts Breasts: normal - Cardiovascular Heart rate: 78 Rhythm: regular Heart Sounds: Present: S1 & S2. Absent: gallop, rub Extremities: pulses intact, No edema, normal color, Full ROM - Gastrointestinal General gastrointestinal: Present: soft, non-tender, non-distended, normal bowel sounds - Genitourinary Male genitourinary: normal - Integumentary Integumentary: clear, warm, dry - Musculoskeletal Musculoskeletal: 1, strength equal bilaterally - Neurologic Neurologic: moves all extremities - Psychiatric Psychiatric: memory intact, appropriate mood/affect, intact judgment & insight - Labs CBC & Chem 7: 12/10/18 04:46 12/10/18 04:46 Labs: Abnormal lab results 12/10/18 12/10/18 12/10/18 Range/Units 17:03 20:45 23:58 POC Glucose 247 H 227 H 204 H (70-105) 12/11/18 Range/Units 06:00 POC Glucose 144 H (70-105)
[2018-12-11] MEDS: FLAGYL 500 MG/100 ML 500 MG/100 ML BAG IV SCH ×3 (11:24→22:21)
[2018-12-11] MEDS: SODIUM CHLORIDE FLUSH SYRINGE 10 ML IV SCH ×3 (11:24→22:23)
[2018-12-11] MEDS: ASPIRIN PO SCH (11:24)
[2018-12-11] MEDS: LOVENOX SUB-Q SCH (11:24)
[2018-12-11] MEDS ORDERED: PNEUMOVAX 23 IM ONE (12:00)
--- NOTE | 2018-12-11 18:35 | Gastroenterology Consultation ---
History of Present Illness - Reason for Consult Consult date: 12/11/18 Diarrhea Requesting physician: MAL OGDEN - History of Present Illness The patient is a 78 yo male who is confused/somewhat of a poor historian. He was brought to the ER by family for weight loss, diarrhea (x 3 weeks, nonbloody, watery, < 5x/day) and confusion. He has been dx on scans this admit with widely metastatic cancer (biopsies not done) as well as a subacute ischemic CVA on chronic white matter changes. He can respond to some commands but is disoriented and not conversant unless prompted. Past History Past Medical History: cancer (New dx), diabetes, hypertension, stroke, other (Parkinsons) Past Surgical History: cataract removal Social history: denies: smoking, alcohol abuse Family history: no significant family history Medications and Allergies Allergies Allergy/AdvReac Type Severity Reaction Status Date / Time No Known Allergies Allergy Verified 10/01/18 11:45 Home Medications Medication Instructions Recorded Confirmed Last Taken Type Atenolol 50 mg PO DAILY 09/23/18 12/09/18 Unknown History Carbidopa/Levodopa [Carbidopa-Levo 1 each PO QID 09/23/18 12/09/18 Unknown History 25-100 mg Odt] Insulin NPH Hum/Reg Insulin Hm 20 units SQ DAILY 09/23/18 12/09/18 Unknown History [Novolin 70-30 100 Unit/ml Vial] Lisinopril [Zestril TAB] 40 mg PO DAILY 09/23/18 12/09/18 Unknown History metFORMIN [Glucophage] 1,000 mg PO BID 09/23/18 12/09/18 Unknown History Colesevelam [Welchol] 625 mg PO DAILY 12/09/18 12/09/18 Unknown History rOPINIRole [Requip] 1 mg PO BID 12/10/18 12/10/18 1 Day Ago History ~12/09/18 2mg Active Meds: Active Medications Acetaminophen (Tylenol) 650 mg PO Q4H PRN PRN Reason: Pain MILD(1-3)/Fever >100.5/ROBLEDO Aspirin (Aspirin) 325 mg PO QDAY MARU Last Admin: 12/11/18 11:24 Dose: 325 mg Documented by: Bisacodyl (Dulcolax) 10 mg SD QDAY PRN PRN Reason: Constipation Enoxaparin Sodium (Lovenox) 40 mg SUB-Q QDAY@1000 [facility] Last Admin: 12/11/18 11:24 Dose: 40 mg Documented by: Sodium Chloride (Nacl 0.9% 1000 Ml) 1,000 mls @ 100 mls/hr IV DIRECT [facility] Last Admin: 12/10/18 01:14 Dose: 100 mls/hr Documented by: Metronidazole (Flagyl 500 Mg/100 Ml) 500 mg in 100 mls @ 100 mls/hr IV Q8HR [facility]; Protocol Last Admin: 12/11/18 13:13 Dose: 100 mls/hr Documented by: Insulin Human Lispro (Humalog) 0 unit SUB-Q ACHS [facility]; Protocol Last Admin: 12/11/18 18:22 Dose: 3 unit Documented by: Magnesium Hydroxide (Milk Of Magnesia) 30 ml PO Q4H PRN PRN Reason: Constipation Metoclopramide HCl (Reglan) 10 mg PO Q6H PRN PRN Reason: Nausea And Vomiting Ondansetron HCl (Zofran) 4 mg IV Q8H PRN PRN Reason: Nausea And Vomiting Oxycodone/Acetaminophen (Percocet 5/325) 1 tab PO Q6H PRN PRN Reason: Pain, Moderate (4-6) Pravastatin Sodium (Pravachol) 20 mg PO QHS [facility] Last Admin: 12/10/18 21:08 Dose: 20 mg Documented by: Sodium Chloride (Sodium Chloride Flush Syringe 10 Ml) 10 ml IV BID [facility] Last Admin: 12/11/18 11:24 Dose: 10 ml Documented by: Sodium Chloride (Sodium Chloride Flush Syringe 10 Ml) 10 ml IV PRN PRN PRN Reason: LINE FLUSH I HAVE REVIEWED AND RECONCILED MEDICATIONS Review of Systems - Review of Systems ROS unobtainable: due to mental status Exam - Constitutional Vital Signs: Temp Pulse Resp BP Pulse Ox 97.9 F 99 H 18 118/70 94 12/11/18 16:51 12/11/18 16:51 12/11/18 16:51 12/11/18 16:51 12/11/18 16:51 General appearance: no acute distress - EENT Eyes: PERRL ENT: hearing intact, no thrush - Neck Neck: supple, normal ROM - Respiratory Respiratory effort: normal Respiratory: bilateral: CTA - Cardiovascular Rhythm: regular Heart Sounds: Present: S1 & S2 - Gastrointestinal General gastrointestinal: Present: soft, non-tender, non-distended - Integumentary Integumentary: Present: clear, warm - Neurologic Neurological: oriented to person - Labs CBC & Chem 7: 12/10/18 04:46 12/10/18 04:46 Lab Results: Laboratory Results - last 24 hr 12/10/18 12/10/18 12/11/18 20:45 23:58 06:00 POC Glucose 227 H 204 H 144 H 12/11/18 12/11/18 11:55 16:58 POC Glucose 266 H 219 H Assessment and Plan - Patient Problems (1) Lung metastases Current Visit: Yes Status: Acute (2) Metastases to the liver Current Visit: Yes Status: Acute (3) Diarrhea Current Visit: Yes Status: Chronic Qualifiers: Diarrhea type: unspecified type Qualified Code(s): R19.7 - Diarrhea, unspecified Plan to address problem: - Likely related to underlying (new) mets cancer. - BMs currently less than 5x/day, and nonbloody. - Would recommend conservative mgmt (immodium, etc) and f/u stool culture. - Pending w/u of cancer (family is unsure about treatment given comorbids), would consider further therapy and workup as family wishes/consider comfort care.
--- NOTE | 2018-12-11 19:43 | Physician Progress Note ---
NEUROLOGIC PROGRESS NOTE SUBJECTIVE: I was consulted on this patient because of Parkinson disease, generalized weakness, encephalopathy, failure to thrive. 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 His Parkinson disease is stable. The decline in mentation most likely is related to the prior stroke or even cancer and Parkinson. Therefore, the patient has multiple medical and neurologic problems. PLAN: I had a long discussion with the 2 [id number] who are present right now. They are happy with how he is. He is better today than yesterday except that he has no appetite. He started to shake and apparently been able to somewhat walk with assistance. They are fully aware about the poor prognosis. The patient is being followed by oncologist. In case needed, the neurologic care will be continued by the oncoming jim broderick neurologist. JOB# [id number] BAUTISTA/SHANTANU
[2018-12-11] MEDS: LOPRESSOR PO SCH (22:22)
[2018-12-11] MEDS: PRAVACHOL PO SCH (22:22)
[2018-12-12] MEDS: FLAGYL 500 MG/100 ML 500 MG/100 ML BAG IV SCH ×3 (06:12→21:31)
[2018-12-12 06:15] LABS: Basophils # (Auto) 0.1 K/mm3 (0.0-0.1); Basophils % (Auto) 0.7 % (0.0-1.8); Eosinophils # (Auto) 0.1 K/mm3 (0.0-0.4); Eosinophils % (Auto) 0.6 % (0.0-4.3); Hematocrit 43.2 % (35.5-45.6); Hemoglobin 14.2 gm/dl (11.8-15.2); Lymphocytes % (Auto) 16.4 % (13.4-35.0); Mean Corpuscular HGB Conc 33 % (32-34); Mean Corpuscular Volume 92 fl (84-94); Monocytes # (Auto) 0.7 K/mm3 (0.0-0.8); Monocytes % (Auto) 5.9 % (0.0-7.3); Platelet Count 282 K/mm3 (140-440); Red Blood Count 4.69 M/mm3 (3.65-5.03); Red Cell Distribution Width 13.4 % (13.2-15.2)
[2018-12-12 06:39] LABS: Albumin 3.3 g/dL (3.9-5); Calcium 9.8 mg/dL (8.4-10.2)
[2018-12-12] MEDS: LOPRESSOR PO SCH ×2 (10:49→21:29)
[2018-12-12] MEDS: ASPIRIN PO SCH (10:49)
[2018-12-12] MEDS: LOVENOX SUB-Q SCH (10:50)
[2018-12-12] MEDS: HumaLOG SUB-Q SCH ×3 (11:48→21:30)
[2018-12-12] MEDS ORDERED: CALCIUM GLUCONATE 2,000 MG in NACL 0.9% 100 ML IV ONE (15:15)
--- NOTE | 2018-12-12 15:21 | Progress Note ---
Assessment and Plan - Patient Problems (1) Hyperkalemia Current Visit: Yes Status: Acute Plan to address problem: Calcium gluconate given (2) Lung metastases Current Visit: Yes Status: Acute Qualifiers: Laterality: unspecified laterality Qualified Code(s): C78.00 - Secondary malignant neoplasm of unspecified lung Plan to address problem: Hem onc consult-- Appreciated (3) Metastases to the liver Current Visit: Yes Status: Acute Plan to address problem: For possible biopsy by IR (4) Stroke Current Visit: Yes Status: Chronic Qualifiers: CVA mechanism: thrombosis Plan to address problem: Stroke in the past Supportive care (5) Diarrhea Current Visit: Yes Status: Chronic Qualifiers: Diarrhea type: unspecified type Qualified Code(s): R19.7 - Diarrhea, unspecified Plan to address problem: GI consult - appreciated (6) HTN (hypertension) Current Visit: Yes Status: Chronic Qualifiers: Hypertension type: essential hypertension Qualified Code(s): I10 - Essential (primary) hypertension Plan to address problem: Cont antihypertensives (7) T2DM (type 2 diabetes mellitus) Current Visit: Yes Status: Chronic Qualifiers: Diabetes mellitus residential insulin use: without intermediate school teacher use Plan to address problem: Cont coverage (8) Dehydration Current Visit: Yes Status: Acute Plan to address problem: IV Fluids for now (9) DVT prophylaxis Current Visit: Yes Status: Acute Plan to address problem: On Lovenox and GI prophylaxis Subjective Date of service: 12/12/18 Principal diagnosis: Lung mets and Liver mets ,Diarrhea Interval history: Egts0at with diarrhea,feeling weak.same condition Objective - Constitutional Vitals: Vital Signs - 12hr 12/12/18 12/12/18 12/12/18 05:06 06:00 08:24 Temperature 97.5 F L Pulse Rate 105 H 141 H 60 Respiratory 20 20 Rate Blood Pressure 124/72 122/69 O2 Sat by Pulse 94 97 Oximetry 12/12/18 12/12/18 12/12/18 08:25 11:45 11:47 Temperature 98.0 F 98.2 F Pulse Rate 103 H Respiratory 18 Rate Blood Pressure 110/60 O2 Sat by Pulse 96 Oximetry General appearance: Present: no acute distress, well-nourished - EENT Eyes: PERRL, EOM intact ENT: hearing intact, clear oral mucosa Ears: bilateral: normal - Neck Neck: supple, normal ROM - Respiratory Respiratory effort: normal Respiratory: bilateral: CTA - Breasts Breasts: normal - Cardiovascular Rhythm: regular Heart Sounds: Present: S1 & S2. Absent: gallop, rub Extremities: pulses intact, No edema, normal color, Full ROM - Gastrointestinal General gastrointestinal: Present: soft, non-tender, non-distended, normal bowel sounds - Genitourinary Male genitourinary: normal - Integumentary Integumentary: clear, warm, dry - Musculoskeletal Musculoskeletal: 1, strength equal bilaterally - Neurologic Neurologic: moves all extremities - Psychiatric Psychiatric: memory intact, appropriate mood/affect, intact judgment & insight - Labs CBC & Chem 7: 12/12/18 04:45 12/12/18 04:45 Labs: Abnormal lab results 12/11/18 12/11/18 12/12/18 Range/Units 16:58 21:17 04:45 WBC (4.5-11.0) K/mm3 Seg Neutrophils % (40.0-70.0) % Seg Neutrophils # (1.8-7.7) K/mm3 Potassium (3.6-5.0) mmol/L Carbon Dioxide (22-30) mmol/L BUN (9-20) mg/dL Creatinine (0.8-1.5) mg/dL Glucose (75-100) mg/dL POC Glucose 219 H 278 H (70-105) Hemoglobin A1c 8.8 H (4-6) % AST (5-40) units/L Alkaline Phosphatase (35-129) units/L Albumin (3.9-5) g/dL 12/12/18 12/12/18 12/12/18 Range/Units 04:45 04:45 06:31 WBC 11.9 H (4.5-11.0) K/mm3 Seg Neutrophils % 76.4 H (40.0-70.0) % Seg Neutrophils # 9.1 H (1.8-7.7) K/mm3 Potassium 5.5 H D (3.6-5.0) mmol/L Carbon Dioxide 20 L (22-30) mmol/L BUN 33 H (9-20) mg/dL Creatinine 2.0 H D (0.8-1.5) mg/dL Glucose 196 H (75-100) mg/dL POC Glucose 192 H (70-105) Hemoglobin A1c (4-6) % AST 47 H (5-40) units/L Alkaline Phosphatase 277 H (35-129) units/L Albumin 3.3 L (3.9-5) g/dL 12/12/18 Range/Units 11:46 WBC (4.5-11.0) K/mm3 Seg Neutrophils % (40.0-70.0) % Seg Neutrophils # (1.8-7.7) K/mm3 Potassium (3.6-5.0) mmol/L Carbon Dioxide (22-30) mmol/L BUN (9-20) mg/dL Creatinine (0.8-1.5) mg/dL Glucose (75-100) mg/dL POC Glucose 180 H (70-105) Hemoglobin A1c (4-6) % AST (5-40) units/L Alkaline Phosphatase (35-129) units/L Albumin (3.9-5) g/dL
[2018-12-12] MEDS ORDERED: TENORMIN PO SCH (16:00)
[2018-12-12] MEDS ORDERED: NON-FORMULARY (Carbidopa/Levodopa [Carbidopa-Levo 25-100 Mg Odt] 1 EACH) PO SCH (18:00)
--- NOTE | 2018-12-12 18:10 | Gastroenterology Progress Note ---
Assessment and Plan 78 yo male admitted for weight loss and diarrhea and found to have metastatic lesions in the lungs and liver. - Patient Problems (1) Metastases to the liver Current Visit: Yes Status: Acute (2) Diarrhea Current Visit: Yes Status: Chronic Qualifiers: Diarrhea type: unspecified type Qualified Code(s): R19.7 - Diarrhea, unspecified Plan to address problem: - Likely related to underlying (new) mets cancer. - stool studies pending. - metformin to be held. - Would recommend conservative mgmt (immodium, etc) and f/u stool culture. - awaiting liver biopsy on Friday. - will sign off at this time. Please call with questions. Subjective Date of service: 12/12/18 Principal diagnosis: Lung mets and Liver mets ,Diarrhea Interval history: Patient continues to have frequent loose stools in small amounts. Reports having leakage. No blood per rectum. Mild abdominal pain. No nausea/vomiting. No appetite Objective - Constitutional Vitals: Temp Pulse Resp BP Pulse Ox 98.2 F 103 H 18 110/60 96 12/12/18 11:47 12/12/18 11:45 12/12/18 11:45 12/12/18 11:45 12/12/18 11:45 General appearance: no acute distress - EENT Eyes: EOM intact ENT: hearing intact - Neck Neck: supple - Respiratory Respiratory effort: normal Respiratory: bilateral: CTA - Cardiovascular Rhythm: regular Heart Sounds: Present: S1 & S2 - Gastrointestinal General gastrointestinal: Present: soft, non-tender, non-distended - Integumentary Integumentary: Present: clear, warm, dry - Labs CBC & Chem 7: 12/12/18 04:45 12/12/18 04:45 Labs: Laboratory Results - last 24 hr 12/11/18 12/12/18 12/12/18 21:17 04:45 04:45 WBC 11.9 H RBC 4.69 Hgb 14.2 Hct 43.2 MCV 92 MCH 30 MCHC 33 RDW 13.4 Plt Count 282 Lymph % (Auto) 16.4 Kendall % (Auto) 5.9 Eos % (Auto) 0.6 Baso % (Auto) 0.7 Lymph # 2.0 Kendall # 0.7 Eos # 0.1 Baso # 0.1 Seg Neutrophils % 76.4 H Seg Neutrophils # 9.1 H Sodium Potassium Chloride Carbon Dioxide Anion Gap BUN Creatinine Estimated GFR BUN/Creatinine Ratio Glucose POC Glucose 278 H Hemoglobin A1c 8.8 H Calcium Total Bilirubin AST ALT Alkaline Phosphatase Total Protein Albumin Albumin/Globulin Ratio 12/12/18 12/12/18 12/12/18 04:45 06:31 11:46 WBC RBC Hgb Hct MCV MCH MCHC RDW Plt Count Lymph % (Auto) Kendall % (Auto) Eos % (Auto) Baso % (Auto) Lymph # Kendall # Eos # Baso # Seg Neutrophils % Seg Neutrophils # Sodium 141 Potassium 5.5 H D Chloride 101.3 Carbon Dioxide 20 L Anion Gap 25 BUN 33 H Creatinine 2.0 H D Estimated GFR 33 BUN/Creatinine Ratio 17 Glucose 196 H POC Glucose 192 H 180 H Hemoglobin A1c Calcium 9.8 Total Bilirubin 0.70 AST 47 H ALT 44 Alkaline Phosphatase 277 H Total Protein 6.9 Albumin 3.3 L Albumin/Globulin Ratio 0.9 - Imaging CT scan: report reviewed
[2018-12-12] MEDS: SINEMET PO SCH ×2 (18:40→21:29)
--- NOTE | 2018-12-12 19:27 | Hem/Onc Progress Note ---
Assessment and Plan 1. Multiple lung lesions, likely metastatic. 2. Multiple liver densities, possible metastatic. 3. History of renal cyst. 4. History of loss of weight. 5. I discussed with the patient and family members regarding biopsy to know the tissue. They are not sure regarding the further plan. They are not keen to have chemotherapy due to his performance status issues. The patient has memory issues. MRI of the head shows stroke. 6. History of diarrhea, GI evaluation. 7. Further issues include Parkinson's issue. 8. History of hypertension. 9. History of diabetes. PLAN: 1. tumor markers. 2. This appears to be a metastatic neoplasm. Liver biopsy is an option. I will liaise with other physicians to guide the patient and family members regarding further investigations. Blood liquid biopsy is an option. I will review this with family members. 12/11/2018 d/w misha - they prefer liver bx - but no chemo or no PORT tumor markers sent - PSA normal 12/12/2018 - d/w dr zhong liver bx ordered family requesting something for appetite - Patient Problems (1) Lung metastases Current Visit: Yes Status: Acute Qualifiers: Laterality: unspecified laterality Qualified Code(s): C78.00 - Secondary malignant neoplasm of unspecified lung Subjective Date of service: 12/12/18 Principal diagnosis: lung and liver lesions Interval history: pt due liver bx Objective - Constitutional Vitals: Last Vital Signs Temp 97.6 F 12/12/18 18:11 Pulse 121 H 12/12/18 18:11 Resp 18 12/12/18 18:11 BP 134/79 12/12/18 18:11 Pulse Ox 95 12/12/18 18:11 Pain Intensity (0-10): denies any pain General appearance: no acute distress Performance status: 3-limited selfcare - EENT Eyes: EOM intact ENT: hearing intact Lymph node exam: negative cervical, negative supraclavicular - Neck Neck: other (parkinsons) - Respiratory Respiratory effort: Positive: normal Respiratory: bilateral: CTA - Cardiovascular Heart Sounds: Present: S1 & S2 Extremities: No edema - Gastrointestinal General gastrointestinal: Present: soft, non-tender, hepatomegaly Rectal Exam: deferred - Genitourinary Male genitourinary: Present: deferred - Integumentary Integumentary: warm - Musculoskeletal Musculoskeletal: generalized weakness - Neurologic Neurologic: moves all extremities - Labs Lab Results: Laboratory Results - last 24 hr 12/11/18 12/12/18 12/12/18 21:17 04:45 04:45 WBC 11.9 H RBC 4.69 Hgb 14.2 Hct 43.2 MCV 92 MCH 30 MCHC 33 RDW 13.4 Plt Count 282 Lymph % (Auto) 16.4 Crisp % (Auto) 5.9 Eos % (Auto) 0.6 Baso % (Auto) 0.7 Lymph # 2.0 Crisp # 0.7 Eos # 0.1 Baso # 0.1 Seg Neutrophils % 76.4 H Seg Neutrophils # 9.1 H Sodium Potassium Chloride Carbon Dioxide Anion Gap BUN Creatinine Estimated GFR BUN/Creatinine Ratio Glucose POC Glucose 278 H Hemoglobin A1c 8.8 H Calcium Total Bilirubin AST ALT Alkaline Phosphatase Total Protein Albumin Albumin/Globulin Ratio 12/12/18 12/12/18 12/12/18 04:45 06:31 11:46 WBC RBC Hgb Hct MCV MCH MCHC RDW Plt Count Lymph % (Auto) Crisp % (Auto) Eos % (Auto) Baso % (Auto) Lymph # Crisp # Eos # Baso # Seg Neutrophils % Seg Neutrophils # Sodium 141 Potassium 5.5 H D Chloride 101.3 Carbon Dioxide 20 L Anion Gap 25 BUN 33 H Creatinine 2.0 H D Estimated GFR 33 BUN/Creatinine Ratio 17 Glucose 196 H POC Glucose 192 H 180 H Hemoglobin A1c Calcium 9.8 Total Bilirubin 0.70 AST 47 H ALT 44 Alkaline Phosphatase 277 H Total Protein 6.9 Albumin 3.3 L Albumin/Globulin Ratio 0.9 12/12/18 18:12 WBC RBC Hgb Hct MCV MCH MCHC RDW Plt Count Lymph % (Auto) Crisp % (Auto) Eos % (Auto) Baso % (Auto) Lymph # Crisp # Eos # Baso # Seg Neutrophils % Seg Neutrophils # Sodium Potassium Chloride Carbon Dioxide Anion Gap BUN Creatinine Estimated GFR BUN/Creatinine Ratio Glucose POC Glucose 175 H Hemoglobin A1c Calcium Total Bilirubin AST ALT Alkaline Phosphatase Total Protein Albumin Albumin/Globulin Ratio Medications & Allergies - Medications Allergies/Adverse Reactions: Allergies No Known Allergies Allergy (Verified 10/01/18 11:45) Home Medications: Home Medications Medication Instructions Recorded Confirmed Last Taken Type Atenolol 50 mg PO DAILY 09/23/18 12/09/18 Unknown History Carbidopa/Levodopa [Carbidopa-Levo 1 each PO QID 09/23/18 12/09/18 Unknown History 25-100 mg Odt] Insulin NPH Hum/Reg Insulin Hm 20 units SQ DAILY 09/23/18 12/09/18 Unknown History [Novolin 70-30 100 Unit/ml Vial] Lisinopril [Zestril TAB] 40 mg PO DAILY 09/23/18 12/09/18 Unknown History metFORMIN [Glucophage] 1,000 mg PO BID 09/23/18 12/09/18 Unknown History Colesevelam [Welchol] 625 mg PO DAILY 12/09/18 12/09/18 Unknown History rOPINIRole [Requip] 1 mg PO BID 12/10/18 12/10/18 1 Day Ago History ~12/09/18 2mg Active Medications: Generic Name Dose Route Start Last Admin Trade Name Freq PRN Reason Stop Dose Admin Acetaminophen 650 mg 12/09/18 22:18 Tylenol PO Q4H PRN Pain MILD(1-3)/Fever >100.5/ROBLEDO Aspirin 325 mg 12/10/18 10:00 12/11/18 11:24 Aspirin PO 325 mg QDAY MARU Administration Bisacodyl 10 mg 12/09/18 22:23 Dulcolax [place] QDAY PRN Constipation Carbidopa/Levodopa 1 each 12/12/18 18:00 Sinemet PO QID MARU Colesevelam HCl 625 mg 12/12/18 18:00 Welchol PO DAILY MARU Enoxaparin Sodium 40 mg 12/10/18 10:00 12/11/18 11:24 Lovenox SUB-Q 40 mg QDAY@1000 MARU Administration Sodium Chloride 1,000 mls @ 100 mls/hr 12/09/18 23:00 12/10/18 01:14 Nacl 0.9% 1000 Ml IV 100 mls/hr DIRECT MARU Administration Metronidazole 500 mg in 100 mls @ 100 mls/hr 12/11/18 10:00 12/12/18 13:20 Flagyl 500 Mg/100 Ml IV 100 mls/hr Q8HR MARU Administration Protocol Insulin Human Lispro 0 unit 12/10/18 16:30 12/11/18 22:23 Humalog SUB-Q 4 unit ACHS MARU Administration Protocol Lisinopril 40 mg 12/12/18 18:00 Zestril PO DAILY MARU Magnesium Hydroxide 30 ml 12/09/18 22:23 Milk Of Magnesia PO Q4H PRN Constipation Metoclopramide HCl 10 mg 12/09/18 22:23 Reglan PO Q6H PRN Nausea And Vomiting Metoprolol Tartrate 25 mg 12/11/18 22:00 12/11/18 22:22 Lopressor PO 25 mg BID MARU Administration Ondansetron HCl 4 mg 12/09/18 22:18 Zofran IV Q8H PRN Nausea And Vomiting Oxycodone/Acetaminophen 1 tab 12/09/18 22:18 Percocet 5/325 PO Q6H PRN Pain, Moderate (4-6) Pravastatin Sodium 20 mg 12/10/18 22:00 12/11/18 22:22 Pravachol PO 20 mg QHS MARU Administration Ropinirole HCl 1 mg 12/12/18 22:00 Requip PO BID MARU Sodium Chloride 10 ml 12/10/18 10:00 12/11/18 22:23 Sodium Chloride Flush Syringe 10 Ml IV 10 ml BID MARU Administration Sodium Chloride 10 ml 12/09/18 22:18 Sodium Chloride Flush Syringe 10 Ml IV PRN PRN LINE FLUSH
[2018-12-12] MEDS: ZESTRIL PO SCH ×2 (20:18→22:56)
[2018-12-12] MEDS: REQUIP PO SCH (21:28)
[2018-12-12] MEDS: PRAVACHOL PO SCH (21:29)
[2018-12-12] MEDS: MEGACE PO SCH (21:29)
[2018-12-12] MEDS: SODIUM CHLORIDE FLUSH SYRINGE 10 ML IV SCH ×2 (21:32)
[2018-12-12] MEDS: WELCHOL PO SCH (22:56)
[2018-12-12] MEDS: TYLENOL PO PRN (23:10)
[2018-12-13 03:10] LABS: BUN/Creatinine Ratio 17; Blood Urea Nitrogen 12 mg/dL (9-20); Calcium 9.6 mg/dL (8.4-10.2); Hemolysis Index 24
[2018-12-13] MEDS: FLAGYL 500 MG/100 ML 500 MG/100 ML BAG IV SCH ×3 (05:35→23:06)
[2018-12-13] MEDS: NACL 0.9% 1000 ML 1,000 ML IV SCH (05:35)
[2018-12-13] MEDS: TYLENOL PO PRN ×2 (05:39→23:06)
[2018-12-13] MEDS: REQUIP PO SCH (09:12)
[2018-12-13] MEDS: SINEMET PO SCH ×4 (09:12→23:07)
[2018-12-13] MEDS: HumaLOG SUB-Q SCH ×5 (09:12→23:09)
[2018-12-13] MEDS: LOPRESSOR PO SCH ×2 (09:12→23:12)
[2018-12-13] MEDS: ASPIRIN PO SCH (09:12)
[2018-12-13] MEDS: LOVENOX SUB-Q SCH (09:13)
[2018-12-13] MEDS: SODIUM CHLORIDE FLUSH SYRINGE 10 ML IV SCH (09:14)
[2018-12-13] MEDS: ZESTRIL PO SCH (09:21)
--- NOTE | 2018-12-13 11:25 | Progress Note ---
Assessment and Plan - Patient Problems (1) Hyperkalemia Current Visit: Yes Status: Acute Plan to address problem: Improved (2) Lung metastases Current Visit: Yes Status: Acute Qualifiers: Laterality: unspecified laterality Qualified Code(s): C78.00 - Secondary malignant neoplasm of unspecified lung Plan to address problem: Hem onc consult-- Appreciated Biopsy tomorrow (3) Metastases to the liver Current Visit: Yes Status: Acute Plan to address problem: For possible biopsy by IR (4) Stroke Current Visit: Yes Status: Chronic Qualifiers: CVA mechanism: thrombosis Plan to address problem: Stroke in the past Supportive care (5) Diarrhea Current Visit: Yes Status: Chronic Qualifiers: Diarrhea type: unspecified type Qualified Code(s): R19.7 - Diarrhea, unspecified Plan to address problem: GI consult - appreciated Possibly secondary to metformin Metformin stopped (6) HTN (hypertension) Current Visit: Yes Status: Chronic Qualifiers: Hypertension type: essential hypertension Qualified Code(s): I10 - Essential (primary) hypertension Plan to address problem: Cont antihypertensives (7) T2DM (type 2 diabetes mellitus) Current Visit: Yes Status: Chronic Qualifiers: Diabetes mellitus penitentiary insulin use: without termite treater helper use Plan to address problem: Cont coverage (8) Dehydration Current Visit: Yes Status: Acute Plan to address problem: IV Fluids for now (9) DVT prophylaxis Current Visit: Yes Status: Acute Plan to address problem: On Lovenox and GI prophylaxis Subjective Date of service: 12/13/18 Principal diagnosis: lung and liver lesions Interval history: Diarrhea improved Objective - Constitutional Vitals: Vital Signs - 12hr 12/13/18 12/13/18 12/13/18 02:33 02:34 06:00 Temperature 99.2 F Pulse Rate 61 112 H Respiratory 22 Rate Blood Pressure 98/58 O2 Sat by Pulse 92 Oximetry 12/13/18 12/13/18 07:50 09:21 Temperature 97.3 F L Pulse Rate 54 L Respiratory 18 Rate Blood Pressure 132/73 132/73 O2 Sat by Pulse 93 Oximetry General appearance: Present: no acute distress, well-nourished - EENT Eyes: PERRL, EOM intact ENT: hearing intact, clear oral mucosa Ears: bilateral: normal - Neck Neck: supple, normal ROM - Respiratory Respiratory effort: normal Respiratory: bilateral: CTA - Breasts Breasts: normal - Cardiovascular Heart rate: 78 Rhythm: regular Heart Sounds: Present: S1 & S2. Absent: gallop, rub Extremities: no ischemia, pulses intact, No edema, normal color, Full ROM - Gastrointestinal General gastrointestinal: Present: soft, non-tender, non-distended, normal bowel sounds - Genitourinary Male genitourinary: normal - Integumentary Integumentary: clear, warm, dry - Musculoskeletal Musculoskeletal: 1, strength equal bilaterally - Neurologic Neurologic: moves all extremities - Psychiatric Psychiatric: memory intact, appropriate mood/affect, intact judgment & insight - Allied health notes Allied health notes reviewed: nursing, case management - Labs CBC & Chem 7: 12/12/18 04:45 12/13/18 02:15 Labs: Abnormal lab results 12/12/18 12/12/18 12/12/18 Range/Units 11:46 18:12 20:58 Creatinine (0.8-1.5) mg/dL Glucose (75-100) mg/dL POC Glucose 180 H 175 H 218 H (70-105) 12/13/18 Range/Units 02:15 Creatinine 0.7 L D (0.8-1.5) mg/dL Glucose 217 H (75-100) mg/dL POC Glucose (70-105)
[2018-12-13] MEDS: MEGACE PO SCH (12:38)
[2018-12-13] MEDS: WELCHOL PO SCH (12:39)
[2018-12-13] MEDS ORDERED: LASIX ONE (17:52)
[2018-12-13] MEDS ORDERED: DUONEB *Not for PRN Use IH (17:58)
[2018-12-13] MEDS ORDERED: PROVENTIL IH PRN (18:09)
[2018-12-13] MEDS: PRAVACHOL PO SCH (23:07)
[2018-12-14] MEDS: REQUIP PO SCH ×3 (00:49→22:13)
[2018-12-14 03:35] LABS: Basophils # (Auto) 0.1 K/mm3 (0.0-0.1); Basophils % (Auto) 0.9 % (0.0-1.8); Hematocrit 44.2 % (35.5-45.6); Hemoglobin 14.7 gm/dl (11.8-15.2); Lymphocytes # (Auto) 1.6 K/mm3 (1.2-5.4); Lymphocytes % (Auto) 10.9 % (13.4-35.0); Mean Corpuscular HGB Conc 33 % (32-34); Mean Corpuscular Volume 91 fl (84-94); Monocytes # (Auto) 0.8 K/mm3 (0.0-0.8); Monocytes % (Auto) 5.8 % (0.0-7.3); Platelet Count 273 K/mm3 (140-440); Red Blood Count 4.87 M/mm3 (3.65-5.03); Red Cell Distribution Width 13.6 % (13.2-15.2)
[2018-12-14 03:45] LABS: BUN/Creatinine Ratio 20; Blood Urea Nitrogen 14 mg/dL (9-20); Calcium 9.9 mg/dL (8.4-10.2); Hemolysis Index 5
[2018-12-14] MEDS: FLAGYL 500 MG/100 ML 500 MG/100 ML BAG IV SCH ×3 (05:46→22:12)
[2018-12-14] MEDS: LASIX IV SCH ×2 (05:46→18:54)
--- NOTE | 2018-12-14 07:42 | Hem/Onc Progress Note ---
Assessment and Plan 1. Multiple lung lesions, likely metastatic. 2. Multiple liver densities, possible metastatic. 3. History of renal cyst. 4. History of loss of weight. 5. I discussed with the patient and family members regarding biopsy to know the tissue. They are not sure regarding the further plan. They are not keen to have chemotherapy due to his performance status issues. The patient has memory issues. MRI of the head shows stroke. 6. History of diarrhea, GI evaluation. 7. Further issues include Parkinson's issue. 8. History of hypertension. 9. History of diabetes. PLAN: 1. tumor markers. 2. This appears to be a metastatic neoplasm. Liver biopsy is an option. I will liaise with other physicians to guide the patient and family members regarding further investigations. Blood liquid biopsy is an option. I will review this with family members. 12/11/2018 d/w misha - they prefer liver bx - but no chemo or no PORT tumor markers sent - PSA normal 12/12/2018 - d/w dr zhong liver bx ordered family requesting something for appetite 12/14/2018 - family reluctant for liver bx - they are looking into NH with hospice we have sent tumor markers reviewed CXR from 12/09/2018 - no pl effusion will cancel liver bx will see as OP - for results of tumor markers ( if pt not in hospice) - Patient Problems (1) Lung metastases Current Visit: Yes Status: Acute Qualifiers: Laterality: unspecified laterality Qualified Code(s): C78.00 - Secondary malignant neoplasm of unspecified lung Subjective Date of service: 12/14/18 Principal diagnosis: lung and liver lesions Interval history: pt was SOB and had fever Objective - Constitutional Vitals: Last Vital Signs Temp 97.8 F 12/14/18 03:32 Pulse 125 H 12/14/18 06:00 Resp 18 12/14/18 03:32 BP 112/60 12/14/18 03:32 Pulse Ox 94 12/14/18 03:32 Pain Intensity (0-10): denies any pain General appearance: mild distress Performance status: 3-limited selfcare - EENT Eyes: EOM intact Lymph node exam: negative cervical, negative supraclavicular - Respiratory Respiratory effort: Positive: other (slight SOB) Respiratory: bilateral: diminished - Cardiovascular Heart Sounds: Present: S1 & S2 Extremities: No edema - Gastrointestinal General gastrointestinal: Present: soft, non-tender Rectal Exam: deferred - Genitourinary Male genitourinary: Present: deferred - Integumentary Integumentary: warm - Musculoskeletal Musculoskeletal: strength equal bilaterally, generalized weakness - Neurologic Neurologic: moves all extremities - Labs Lab Results: Laboratory Results - last 24 hr 12/13/18 12/13/18 12/13/18 08:40 11:38 16:52 WBC RBC Hgb Hct MCV MCH MCHC RDW Plt Count Lymph % (Auto) Eagle % (Auto) Eos % (Auto) Baso % (Auto) Lymph # Eagle # Eos # Baso # Seg Neutrophils % Seg Neutrophils # Sodium Potassium Chloride Carbon Dioxide Anion Gap BUN Creatinine Estimated GFR BUN/Creatinine Ratio Glucose POC Glucose 240 H 264 H 198 H Calcium 12/13/18 12/14/18 12/14/18 21:59 03:05 03:05 WBC 14.6 H RBC 4.87 Hgb 14.7 Hct 44.2 MCV 91 MCH 30 MCHC 33 RDW 13.6 Plt Count 273 Lymph % (Auto) 10.9 L Eagle % (Auto) 5.8 Eos % (Auto) 0.0 Baso % (Auto) 0.9 Lymph # 1.6 Eagle # 0.8 Eos # 0.0 Baso # 0.1 Seg Neutrophils % 82.4 H Seg Neutrophils # 12.0 H Sodium 142 Potassium 3.4 L Chloride 102.8 Carbon Dioxide 21 L Anion Gap 22 BUN 14 Creatinine 0.7 L Estimated GFR > 60 BUN/Creatinine Ratio 20 Glucose 216 H POC Glucose 201 H Calcium 9.9 Medications & Allergies - Medications Allergies/Adverse Reactions: Allergies No Known Allergies Allergy (Verified 10/01/18 11:45) Home Medications: Home Medications Medication Instructions Recorded Confirmed Last Taken Type Atenolol 50 mg PO DAILY 09/23/18 12/09/18 Unknown History Carbidopa/Levodopa [Carbidopa-Levo 1 each PO QID 09/23/18 12/09/18 Unknown History 25-100 mg Odt] Insulin NPH Hum/Reg Insulin Hm 20 units SQ DAILY 09/23/18 12/09/18 Unknown History [Novolin 70-30 100 Unit/ml Vial] Lisinopril [Zestril TAB] 40 mg PO DAILY 09/23/18 12/09/18 Unknown History metFORMIN [Glucophage] 1,000 mg PO BID 09/23/18 12/09/18 Unknown History Colesevelam [Welchol] 625 mg PO DAILY 12/09/18 12/09/18 Unknown History rOPINIRole [Requip] 1 mg PO BID 12/10/18 12/10/18 1 Day Ago History ~12/09/18 2mg Active Medications: Generic Name Dose Route Start Last Admin Trade Name Freq PRN Reason Stop Dose Admin Acetaminophen 650 mg 12/09/18 22:18 12/13/18 23:06 Tylenol PO 650 mg Q4H PRN Administration Pain MILD(1-3)/Fever >100.5/ROBLEDO Albuterol 2.5 mg 12/13/18 18:09 Proventil IH Q4HRT PRN Shortness Of Breath Aspirin 325 mg 12/10/18 10:00 12/13/18 09:12 Aspirin PO 325 mg QDAY MARU Administration Bisacodyl 10 mg 12/09/18 22:23 Dulcolax NH QDAY PRN Constipation Carbidopa/Levodopa 1 each 12/12/18 18:00 12/13/18 23:07 Sinemet PO 1 each QID MARU Administration Colesevelam HCl 625 mg 12/12/18 18:00 12/13/18 12:39 Welchol PO 625 mg DAILY MARU Administration Enoxaparin Sodium 40 mg 12/10/18 10:00 12/13/18 09:13 Lovenox SUB-Q 40 mg QDAY@1000 MARU Administration Furosemide 40 mg 12/14/18 06:00 12/14/18 05:46 Lasix IV 40 mg Q12H MARU Administration Metronidazole 500 mg in 100 mls @ 100 mls/hr 12/11/18 10:00 12/14/18 05:46 Flagyl 500 Mg/100 Ml IV 100 mls/hr Q8HR MARU Administration Protocol Insulin Human Lispro 0 unit 12/10/18 16:30 12/13/18 23:09 Humalog SUB-Q 3 unit ACHS MARU Administration Protocol Lisinopril 40 mg 12/12/18 18:00 12/13/18 09:21 Zestril PO 40 mg DAILY MARU Administration Magnesium Hydroxide 30 ml 12/09/18 22:23 Milk Of Magnesia PO Q4H PRN Constipation Megestrol Acetate 400 mg 12/12/18 22:00 12/13/18 12:38 Megace PO 400 mg QDAY MARU Administration Metoclopramide HCl 10 mg 12/09/18 22:23 Reglan PO Q6H PRN Nausea And Vomiting Metoprolol Tartrate 25 mg 12/11/18 22:00 12/13/18 23:12 Lopressor PO Not Given BID MARU Ondansetron HCl 4 mg 12/09/18 22:18 Zofran IV Q8H PRN Nausea And Vomiting Oxycodone/Acetaminophen 1 tab 12/09/18 22:18 Percocet 5/325 PO Q6H PRN Pain, Moderate (4-6) Pravastatin Sodium 20 mg 12/10/18 22:00 12/13/18 23:07 Pravachol PO 20 mg QHS MARU Administration Ropinirole HCl 1 mg 12/12/18 22:00 12/14/18 00:49 Requip PO Not Given BID MARU Sodium Chloride 10 ml 12/10/18 10:00 12/13/18 09:14 Sodium Chloride Flush Syringe 10 Ml IV 10 ml BID MARU Administration Sodium Chloride 10 ml 12/09/18 22:18 12/12/18 21:32 Sodium Chloride Flush Syringe 10 Ml IV 10 ml PRN PRN Administration LINE FLUSH
[2018-12-14] MEDS: HumaLOG SUB-Q SCH ×4 (08:29→22:15)
--- NOTE | 2018-12-14 09:26 | Progress Note ---
Assessment and Plan - Patient Problems (1) Lung metastases Current Visit: Yes Status: Acute Qualifiers: Laterality: unspecified laterality Qualified Code(s): C78.00 - Secondary malignant neoplasm of unspecified lung Plan to address problem: Hem onc consult-- Appreciated Biopsy Refused Patient to be placed in SNF/Hospice D/w DIL (2) Hyperkalemia Current Visit: Yes Status: Acute Plan to address problem: Improved (3) Metastases to the liver Current Visit: Yes Status: Acute Plan to address problem: Possible rectal cancer after discussing with Radiology (4) Stroke Current Visit: Yes Status: Chronic Qualifiers: CVA mechanism: thrombosis Plan to address problem: Stroke in the past Supportive care (5) Diarrhea Current Visit: Yes Status: Chronic Qualifiers: Diarrhea type: unspecified type Qualified Code(s): R19.7 - Diarrhea, unspecified Plan to address problem: GI consult - appreciated Possibly secondary to metformin Metformin stopped (6) HTN (hypertension) Current Visit: Yes Status: Chronic Qualifiers: Hypertension type: essential hypertension Qualified Code(s): I10 - Essential (primary) hypertension Plan to address problem: Cont antihypertensives (7) T2DM (type 2 diabetes mellitus) Current Visit: Yes Status: Chronic Qualifiers: Diabetes mellitus chcf insulin use: without shirring machine operator use Plan to address problem: Cont coverage (8) Dehydration Current Visit: Yes Status: Acute Plan to address problem: IV Fluids for now (9) DVT prophylaxis Current Visit: Yes Status: Acute Plan to address problem: On Lovenox and GI prophylaxis (10) Discharge planning issues Current Visit: Yes Status: Acute Plan to address problem: continuity manager working on placement Family very realistic and cooperative (11) Discharge planning issues Current Visit: Yes Status: Acute Plan to address problem: D/w continuity manager for placement in SNF with hospice Subjective Date of service: 12/14/18 Principal diagnosis: lung and liver lesions Interval history: Patient was SOB last night . Improved with IV Lasix IV fluids were stopped Family refuses biopsy and want placement in NH/Hospice Objective - Constitutional Vitals: Vital Signs - 12hr 12/13/18 12/14/18 12/14/18 22:00 03:32 06:00 Temperature 97.8 F Pulse Rate 64 125 H Pulse Rate [ 86 From Monitor] Respiratory 18 Rate Blood Pressure 112/60 O2 Sat by Pulse 93 94 Oximetry 12/14/18 07:32 Temperature 98.0 F Pulse Rate 120 H Pulse Rate [ From Monitor] Respiratory 20 Rate Blood Pressure 101/66 O2 Sat by Pulse 93 Oximetry General appearance: Present: no acute distress, well-nourished - EENT Eyes: PERRL, EOM intact ENT: hearing intact, clear oral mucosa Ears: bilateral: normal - Neck Neck: supple, normal ROM - Respiratory Respiratory effort: normal Respiratory: bilateral: CTA - Breasts Breasts: normal - Cardiovascular Rhythm: regular Heart Sounds: Present: S1 & S2. Absent: gallop, rub Extremities: pulses intact, No edema, normal color, Full ROM - Gastrointestinal General gastrointestinal: Present: soft, non-tender, non-distended, normal bowel sounds - Genitourinary Male genitourinary: normal - Integumentary Integumentary: clear, warm, dry - Musculoskeletal Musculoskeletal: 1, strength equal bilaterally - Neurologic Neurologic: moves all extremities - Psychiatric Psychiatric: memory intact, appropriate mood/affect, intact judgment & insight - Labs CBC & Chem 7: 12/14/18 03:05 12/14/18 03:05 Labs: Abnormal lab results 12/13/18 12/13/18 12/13/18 Range/Units 08:40 11:38 16:52 WBC (4.5-11.0) K/mm3 Lymph % (Auto) (13.4-35.0) % Seg Neutrophils % (40.0-70.0) % Seg Neutrophils # (1.8-7.7) K/mm3 Potassium (3.6-5.0) mmol/L Carbon Dioxide (22-30) mmol/L Creatinine (0.8-1.5) mg/dL Glucose (75-100) mg/dL POC Glucose 240 H 264 H 198 H (70-105) 12/13/18 12/14/18 12/14/18 Range/Units 21:59 03:05 03:05 WBC 14.6 H (4.5-11.0) K/mm3 Lymph % (Auto) 10.9 L (13.4-35.0) % Seg Neutrophils % 82.4 H (40.0-70.0) % Seg Neutrophils # 12.0 H (1.8-7.7) K/mm3 Potassium 3.4 L (3.6-5.0) mmol/L Carbon Dioxide 21 L (22-30) mmol/L Creatinine 0.7 L (0.8-1.5) mg/dL Glucose 216 H (75-100) mg/dL POC Glucose 201 H (70-105) 12/14/18 Range/Units 08:24 WBC (4.5-11.0) K/mm3 Lymph % (Auto) (13.4-35.0) % Seg Neutrophils % (40.0-70.0) % Seg Neutrophils # (1.8-7.7) K/mm3 Potassium (3.6-5.0) mmol/L Carbon Dioxide (22-30) mmol/L Creatinine (0.8-1.5) mg/dL Glucose (75-100) mg/dL POC Glucose 195 H (70-105)
[2018-12-14 09:36] LABS: INR 1.78 (0.87-1.13)
[2018-12-14 09:37] LABS: Partial Thromboplastin Time 29.5 Sec. (24.2-36.6)
[2018-12-14] MEDS ORDERED: K-DUR PO ONE (10:00)
[2018-12-14] MEDS: MEGACE PO SCH (11:00)
[2018-12-14] MEDS: LOPRESSOR PO SCH ×2 (11:11→22:13)
[2018-12-14] MEDS: SINEMET PO SCH ×4 (11:15→22:13)
[2018-12-14] MEDS: ASPIRIN PO SCH (11:15)
[2018-12-14] MEDS: SODIUM CHLORIDE FLUSH SYRINGE 10 ML IV SCH ×3 (11:23→22:16)
[2018-12-14] MEDS: LOVENOX SUB-Q SCH (11:25)
[2018-12-14] MEDS: ZESTRIL PO SCH (11:26)
[2018-12-14] MEDS: WELCHOL PO SCH (11:29)
[2018-12-14] MEDS: PRAVACHOL PO SCH (22:12)
[2018-12-15] MEDS: LASIX IV SCH (05:42)
[2018-12-15] MEDS: FLAGYL 500 MG/100 ML 500 MG/100 ML BAG IV SCH (05:42)
[2018-12-15] MEDS: HumaLOG SUB-Q SCH (10:54)
[2018-12-15] MEDS: REQUIP PO SCH (11:01)
[2018-12-15] MEDS: SINEMET PO SCH (11:01)
[2018-12-15] MEDS: ASPIRIN PO SCH (11:01)
--- NOTE | 2018-12-15 11:08 | Discharge Summary ---
Providers - Providers Date of Admission: 12/09/18 22:18 Date of discharge: 12/15/18 Attending physician: DEEPAK SALAS 12/09/18 22:23 Occupational Therapy Evaluate and Treat [CONS] Routine Comment: Reason For Exam: Neuro deficits Physical Therapy Evaluation and Treat [CONS] Routine Comment: Reason For Exam: Neuro deficits 12/10/18 14:11 Consult to Physician [CONS] Routine Comment: Consulting Provider: SHADI HORTON Physician Instructions: Reason For Exam: pulmonary nodules and Liver mets 12/11/18 09:21 Consult to Physician [CONS] Routine Comment: Consulting Provider: JIMMIE LAGUERRE Physician Instructions: Reason For Exam: Recurrent Diarrhea 12/14/18 09:23 Consult to Case Management [CONS] Routine Services Needed at Discharge: Home Health Services Rn Spine Notified:: YES Was contact made?: Yes If yes, spoke with:: GENO Comment:: SNF/Hospice Primary care physician: LOOM SETTER Hospitalization Condition: Stable Hospital course: Patient is a 78 yo man with a history of hypertension, type 1 DM and Parkinson's Disease who presented to [facility] ED due to weight loss, diarrhea, AMS and FTT. Patient was found to have metastatic cancer. He was evaluated by Salvage Laborer/Oncologist, Dr. Horton, who recommended a biopsy but son, Segundo and patient declined biopsy and sought palliative care. * CT head without contrast IMPRESSION: Chronic ischemic changes as described. Question subacute ischemic injury in the left parieto-occipital lobe. Left maxillary sinusitis. CT abd and pelvis with contrast IMPRESSION: Extensive metastatic disease in the lungs and liver. Atherosclerosis. Bilateral renal cysts. * MRI brain w/o contrast: 4.2 x 2.7 cm subacute ischemic infarct in the left parieto-occipital region, chronic infarct in the right occipital lobe, left posterior temporal lobe and left parietal lobe, volume loss, chronic white matter changes, acute on chronic left maxillary sinusitis -Acute metabolic encephalopathy, poa -Lung and Liver metastasis -Hyperkalemia -Subacute Ischemic Stroke -Diarrhea -HTN (hypertension) -T2DM (type 2 diabetes mellitus) -Discharge planning issues: D/w corporate travel manager for placement in SNF with hospice -DNR Disposition: DC/[place]-03 SNF W [facility] Time spent for discharge: 36 minutes Core Measure Documentation - Palliative Care Palliative Care/ Comfort Measures: Not Applicable - Core Measures Any of the following diagnoses?: stroke - VTE Discharge Requirements Deep Vein Thrombosis/Pulmonary Embolism Present on Admission: No Has pt received <5 days of overlap therapy or INR<2.0: No Anticoagulant overlap therapy prescribed at discharge: No Contraindication No Overlap Therapy order at DC: Not Indicated - Stroke Discharge Requirements Statin for LDL = or >70 mg/dl on DC: Yes Anticoag for atrial fib/atrial flutter: No Reason for no anticoag for AF/F on DC: Not Indicated Antithrombotic for ischemic stroke: Yes Exam - Physical Exam Narrative exam: Gen: thin frail, de-conditioned, chronically disable awake HEENT: NCAT, EOMI, PERRL, OP Clear Neck: supple, no adenopathy, no thyromegaly, no JVD CVS/Heart: Regular tachycardia, normal S1S2, pulses present bilaterally Chest/Lungs: diminished bs bilateral, Symmetrical chest expansion, good air entry bilaterally GI/Abdomen: soft, NTND, good bowel sounds, no guarding or rebound /Bladder: no suprapubic tenderness, no CVA or paraspinal tenderness Extermity/Skin: no c/c/e, no obvious rash MSK: FROM x 4, walked with assistance Neuro: CN 2-12 grossly intact, no new focal deficits Psych: calm - Constitutional Vitals: Temp Pulse Resp BP Pulse Ox 98.4 F 126 H 20 115/69 91 12/15/18 07:18 12/15/18 07:18 12/15/18 07:18 12/15/18 07:18 12/15/18 07:18 Plan Activity: other (no strenous activity) Diet: advance as tolerated Follow up with: RANDI MCKEON MD [Primary Care Provider] - 3-5 Days JIMMIE LAGUERRE MD [Staff Physician] - 7 Days SHADI HORTON MD [Staff Physician] - 7 Days
[2018-12-15 12:58] VITALS: BP 124/82
== END 2018-12-15 13:54 | DRG 64 ==
LOC: ED 16:15 → 4A 22:18 → 2B-ACE 12-12 23:57
PROVIDERS: ADMIT Internal Medicine; ATTEND Internal Medicine
PROC: 3E0234Z Introduction of Serum, Toxoid and Vaccine into Muscle, Percutaneous Approach (ICD-10-PCS; principal; 2018-12-11)
DX: I63.9 Cerebral infarction, unspecified (principal); N17.0 Acute kidney failure with tubular necrosis; G93.41 Metabolic encephalopathy; C78.00 Secondary malignant neoplasm of unspecified lung; C78.7 Secondary malignant neoplasm of liver and intrahepatic bile duct; E87.5 Hyperkalemia; E10.9 Type 1 diabetes mellitus without complications; I10 Essential (primary) hypertension; G20 Parkinson's disease; Z98.49 Cataract extraction status, unspecified eye; Z82.49 Family history of ischemic heart disease and other diseases of the circulatory system; C80.1 Malignant (primary) neoplasm, unspecified; E86.0 Dehydration; M19.90 Unspecified osteoarthritis, unspecified site; Z87.891 Personal history of nicotine dependence; R62.7 Adult failure to thrive; Z23 Encounter for immunization
CPT/HCPCS: 36415; 70450; 70551; 71045; 74177; 80048; 80053; 80061; 81001; 82106; 82378; 82962; 83036; 84153; 84484; 85025; 85610; 85730; 86301; 90471; 90686; 90732; 93005; 93010; 93306; 93880; 94760; 96365; G0378; A9270-GY; G0008; G0009; G8978-GP; G8979-GP; J0610; J1650; J1815; J1940; J2543; J7030; Q9967